=== PATIENT | male | born 1985 | race Caucasian/White ===

== ENCOUNTER 2023-10-22 18:46 | Emergency (ER) | payer SELFPAY ==
[2023-10-22] VITALS (34 sets, daily range): BP systolic 120–201; BP diastolic 68–112; PULSE 62–112; RESP 14–38; TEMP 36.9–37; O2SAT 96–100
--- NOTE | 2023-10-22 18:45 | RT.EKG_ITS ---
APPROVED REPORT Exam: Resting ECG Reason for Exam: unresponsive Patient Location: E HR:107 bpm ECG Measurements Heart Rate 107 AXIS OH 173 P 28 QRSd 106 QRS 1 QT 336 T 36 QTc 449 Conclusion Sinus tachycardia...rate> 99 Inferior infarct, old...Q >35mS, II III aVF
--- NOTE | 2023-10-22 19:03 | DI.CT_ITS ---
Exam(s) CT BRAIN NECK CTA EXAM: CT BRAIN NECK CTA CLINICAL HISTORY: TIA workup. TECHNIQUE: Imaging Protocol: Axial CT angiography was performed with multi-slice acquisition and mu lti-planar and MIP reconstructions. CONTRAST MATERIAL: Intravenous: Omnipaque 350 Contrast volume:85 ml COMPARISON: No exams were available for comparison FINDINGS: CT Head W/O and W contrast: Ventricles and Extra axial spaces: Normal in size and morphology for the patient's age. Hemorrhage: None. Cerebral parenchyma: No evidence of acute infarct or mass. Midline shift: None. Brainstem/Cerebellum: No acute findings.. Calvarium: Normal. Visualized Paranasal sinuses/Mastoids: Small mucous retention cyst left maxillary sinus. Soft Tissues: Unremarkable. Enhancement: Normal. CTA Brain W: Internal Carotid Arteries: Petrous: Normal. Cavernous: Normal. Cerebral: Normal. Middle Cerebral Arteries: Right: No aneurysm, occlusion or significant stenosis. Left: No aneurysm, occlusion or significant stenosis. Anterior Cerebral Arteries: Right: No aneurysm, occlusion or significant stenosis. Left: No aneurysm, occlusion or significant stenosis. Posterior cerebral Arteries: Right: origin. No aneurysm, occlusion or significant stenosis. Left: No aneurysm, occlusion or significant stenosis. Vertebral Arteries: Right: Dominant. No aneurysm, occlusion or significant stenosis. Left: No aneurysm, occlusion or significant stenosis. Terminates as PICA. Basilar Artery: No aneurysm, occlusion or significant stenosis. CTA Neck W: Common Carotid: Right: No dissection, occlusion or significant stenosis. Left: No dissection, occlusion or significant stenosis. External Carotid: Right: No dissection, occlusion or significant stenosis. Left: No dissection, occlusion or significant stenosis. Internal Carotid: Right: No dissection, occlusion or significant stenosis. Left: No dissection, occlusion or significant stenosis. Vertebral Artery: Right: No dissection, occlusion or significant stenosis. Left: No dissection, occlusion or significant stenosis. Lung Apices: No acute findings. Bones: No acute abnormality. Somewhat limited evaluation due to artifact. Soft Tissues: Normal. IMPRESSION: 1. CTA brain: Normal CTA examination of the [place]. 2. Head CT: Unremarkable CT Head. 3. CTA neck: Normal CTA examination of the neck. RADIATION DOSE DELIVERED: Total DLP DATA REPOSITORY: All CT scans at this facility are submitted to the National Radiology Data Registry (NRDR) Dose Index Registry (DIR) with the [employer] (ACR). RADIATION OPTIMIZATION: All CT scans at this facility use at least one of these dose optimization te chniques: automated exposure control; mA and/or kV adjustment per patient size (includes targeted exa ms where dose is matched to clinical indication); or iterative reconstruction.
[2023-10-22] MEDS: Famotidine 20 MG/2 ML VIAL IVP (19:04)
[2023-10-22 19:07] LABS: Abs Immature Grans 0.05 10^3/uL (0.0-0.06); Absolute Basophil Count 0.08 10^3/uL (0.0-0.2); Absolute Eosinophil Count 0.39 10^3/uL (0.0-0.7); Absolute Lymphocyte Count 3.57 10^3/uL (1.2-3.4); Absolute Monocyte Count 1.04 10^3/uL (0.1-0.8); Basophils % 0.6 %; Eosinophils % 2.8 %; HCT 43.6 % (40.0-50.0); Immature Grans % 0.4 %; Lymphocytes % 25.4 %; MCH 26.5 pg (27.0-33.0); MCHC 32.1 % (32.0-36.0); MCV 83 fL (80-95); MPV 9.3 fL (8.0-11.0); Monocytes % 7.4 %; Neutrophils % 63.4 %; Platelet Count 343 10^3/uL (130-400); RBC 5.28 10^6/uL (4.36-5.78); RDW 13.6 % (11.8-14.1); RDW-SD 40.5 fL; WBC 14.05 10^3/uL (4.4-10.8)
[2023-10-22] MEDS: Aspirin 81 MG CHEW 324 MG CH (19:07)
[2023-10-22 19:12] LABS: Absolute Neutrophil Count 8.91 10^3/uL (1.2-6.7)
--- NOTE | 2023-10-22 19:14 | ED.GENADUL_ITS ---
Discharge Plan Disposition Patient Disposition: Home Discharge Details Clinical Impression: Chest pain, Syncope Primary Care Provider: Mora,Local ED Provider: Mariajose Armendariz Home Meds and New Rx's Prescriptions: No Action No Known Home Meds Discharge Instructions Instructions: Syncope (fainting) Additional Instructions: I encourage you to reach out to [facility] primary care provider offices to schedule a PCP visit ELIANA for reevaluation. Your workup today was reassuring. Your episode of unresponsiveness was likely due to syncope/passing out, however I recommend outpatient workup with primary care to rule out other causes such as cardiac arrhythmia. Your chest pain is likely due to gastritis/ acid reflux. I recommend that you use over the counter mylanta or pepcid (famotidine) as needed. Try to reduce your consumption of Mountain Dew, as this is high in caffeine and may lead to cardiac arrhythmias. Be sure to drink plenty of water throughout the day. Return to emergency care if you develop new episodes of passing out/unresponsiveness, chest pain, shortness of breath, or if you are very worried and need to be rechecked again immediately. HPI General Date/Time Provider Initiated Documentation: 10/22/23 18:47 . HPI Narrative: Pedro is a 38 male presents to the emergency department today for evaluation of sudden onset of generalized weakness, left-sided chest pain radiating to his left upper quadrant which is described as an elephant sitting on his chest, shortness of breath. He had a loss of consciousness/unresponsive episode accompanied by drooping to the L side of his mouth. This occurred approximately 20 to 30 minutes prior to arrival to the emergency department. Emergency department staff reports he was unresponsive intially, but did awaken with sternal rub. No reported limb jerking, tongue biting, loss of bowel/bladder control. He denies fever/chills, cough, change in PO intake (though does not drink water during the day, just Mountain Dew), nausea/vomiting, diaphoresis, change in bowel/bladder function. He was working outside until 3 pm today; only urinated once today. +family history of early PA (father); denies tobacco use or regular ETOH use. No known HTN, DM, or other chronic medical conditions (though admits he has not seen a PCP in a long time). Recent history of testicular torsion with testicular mass; currently being worked up. Upon arrival to room 1, Pedro appeared uncomfortable and anxious appearing, initially slow to answer questions. No obvious facial droop or slurred speech, moving all extremities equally. Normal heart sounds, tachycardia noted with HR in 110s. +tenderness with palpation of LUQ. Abdomen soft, nondistended, normoactive BS. Easy work of breathing, lung sounds clear bilaterally. 5/5 muscle strength to upper and lower extremities, no pronation, A+Ox3, acute care occupational therapist II-XII intact as tested. No JVD or pedal edema. Normal finger to finger, finger to nose, Romberg, Meir, heel-hrenandez, gait, and tandem walk. D/dx includes but is not limited to: ACS, syncope, TIA, cardiac arrhythmia, anxiety, esophageal spasm/GERD, pancreatitis, cholecystitis/choledocholithiasis, dehydration, electrolyte imbalance. NIHSS 0. HEART score 2, indicating low risk of MACE. I independently interpreted the following tests:EKG reassuring, sinus tach with rate 107, no changes c/w acute ischemia. CBC notable for leukocytosis, WBC 14.05; CMP reassuring, only mild hypokalemia noted (3.3), lipase negative, initial troponin negative. CTA head and neck reassuring, no occlusion or large vessel stenosis noted within the intracranial arteries or acute intracranial abnormality noted. CT abdomen/pelvis unremarkable, no acute findings. Upon arrival to the ED, Pedro received 3 nitro with full resolution of chest pain (started 10/10, now 0/10), as well as 324 mg ASA, though LUQ pain does persist. IV fluids given. Discussed case with ED attending Dr De La Garza. Workup today overall reassuring. Unresponsive episode unlikely TIA, as isolated lip drooping was noted with no other neuro deficits. Likely syncope, though transient cardiac arrhythmia cannot be ruled out. Cardiac workup reassuring, persistent left upper quadrant pain most likely gastric in origin, muscle spasm may also be possible. Patient does not live in [place]. Recommend close PCP follow-up in his local area. He is agreeable with plan of care. Educated on red flags indicating need for return to emergency care Related Data Home Medications ?Medication ?Instructions ?Recorded ?Confirmed Unknown [No Known Home Meds] 10/22/23 10/22/23 Allergies Allergy/AdvReac Type Severity Reaction Status Date / Time No Known Allergies Allergy Unverified 10/22/23 19:18 General Stated Complaint: Chest Pain CATARINO: 2 Review of Systems Narrative: see HPI Exam Const General: cooperative and anxious Nutritional Appearance: overweight Orientation: alert and oriented x3 Limitations: altered mental status (upon arrival to ED, resolved by time to room) HENMT Head: normal to inspection Ears: hearing grossly normal bilaterally General nose exam: external nose normal Face and sinus: face symmetric and dry mucous membranes (slightly tacky) Neck Neck: no JVD Resp Effort & Inspection: normal respiratory effort and able to speak in complete sentences Auscultation: clear to auscultation bilaterally Cardio Jugular venous pressure: no JVD Rate: tachycardic Rhythm: regular rhythm Pulses: normal peripheral pulses GI Inspection: normal to inspection and non-distended Palpation: soft, no pulsatile masses and tender in the LUQ Skin General skin exam: no rashes or lesions noted Neuro General: patient alert, patient oriented x3, tone normal, moves all extremities, no focal motor deficits and CN's II-XI intact bilaterally Cranial Nerves: no nystagmus, tongue midline, hearing normal and able to elevate shoulders bilaterally Cognition: normal cognition Speech: speech normal Motor: muscle tone normal throughout, strength 5/5 throughout and no pronator drift Course Vital Signs Vital signs: Vital Signs Temperature 36.9 C 10/22/23 18:54 Pulse 106 H 10/22/23 18:54 Respiratory Rate 14 10/22/23 18:54 Blood Pressure 201/112 H 10/22/23 18:54 Pulse Oximetry 100 10/22/23 18:54 Temperature 36.9 C 10/22/23 18:54 Temperature Source Oral 10/22/23 18:54 Pulse 106 H 10/22/23 18:54 Respiratory Rate 14 10/22/23 18:54 Blood Pressure 201/112 H 10/22/23 18:54 Blood Pressure Position Supine 10/22/23 18:54 Pulse Oximetry 100 10/22/23 18:54 Oxygen Delivery Method Room Air 10/22/23 18:54 Oxygen Flow Rate 0 10/22/23 18:54 Pain Level 10 10/22/23 18:54 Comment Pain in left chest/side. Constant on chest and comes and goes on left side of abdomen and chest. 10/22/23 18:54 Lab/Test Results Lab/Test Results: Laboratory Tests Range/Units 10/22/23 18:57 WBC (4.4-10.8) 10^3/uL 14.05 H RBC (4.36-5.78) 10^6/uL 5.28 Hgb (13.5-17.5) g/dL 14.0 Hct (40.0-50.0) % 43.6 MCV (80-95) fL 83 MCH (27.0-33.0) pg 26.5 L MCHC (32.0-36.0) % 32.1 RDW (11.8-14.1) % 13.6 Plt Count (130-400) 10^3/uL 343 MPV (8.0-11.0) fL 9.3 Immature Gran % % 0.4 Neutrophils % % 63.4 Lymphocytes % % 25.4 Monocytes % % 7.4 Eosinophils % % 2.8 Basophils % % 0.6 Nucleated RBC % (0.0-0.3) % 0.0 Absolute Neutrophils (1.2-6.7) 10^3/uL 8.91 H Absolute Lymphocytes (1.2-3.4) 10^3/uL 3.57 H Absolute Monocytes (0.1-0.8) 10^3/uL 1.04 H Absolute Eosinophils (0.0-0.7) 10^3/uL 0.39 Absolute Basophils (0.0-0.2) 10^3/uL 0.08 Medical Decision Making Quality:SDOH Health Related Social Needs: No Data to Display PFSH All Active Problems (Updated 10/22/23 @ 22:41 by Mariajose Juarez) Syncope (Chronic) Chest pain (Acute) Social History Smoking/Tobacco Use Status: Never Smoking risk assessment performed?: Yes Alcohol Intake: current Alcohol Intake frequency: holidays/special occasions only Alcohol type: beer Substance use type: does not use Housing: house Do you feel safe at home: Yes Do you feel safe in your relationship?: Yes
--- NOTE | 2023-10-22 19:15 | DI.CT_ITS ---
Exam(s) CT CHEST/ABD/PEL W EXAM: CT CHEST/ABD/PEL W CLINICAL HISTORY: L sided chest pain/LUQ pain. TECHNIQUE: Imaging Protocol: Axial computed tomography images with coronal and sagittal reformatted images were created and reviewed CONTRAST MATERIAL: Intravenous: Omnipaque 350 Contrast volume:100 ml Oral: yes / no COMPARISON: CT CT BRAIN NECK CTA from 10/22/2023 FINDINGS: CHEST: Tracheobronchial tree: Patent. Pulmonary parenchyma: No consolidation or dominant measurable mass. Pleura: No effusion or pneumothorax. Mediastinum: Within normal limits. Aorta: Thoracic portion non-dilated. Pulmonary arteries: No visible emboli. Heart: No pericardial effusion. Bones: Degenerative changes in the lower thoracic spine. No lytic or blastic lesions.Chronic appeari ng mild compression of the T7 through T9 vertebral bodies. Soft tissues: Unremarkable. ABDOMEN and PELVIS: Liver: Hepatic steatosis. No measurable mass. Gallbladder and biliary tract: No evidence of stones or wall thickening. No biliary dilatation. Pancreas: Normal density, no abnormal calcifications or inflammatory process. Spleen: Normal. Kidneys: Normal size, contour and axis. No radiodense stones. No obstructive uropathy. No suspicious masses seen. Adrenal glands: No masses seen. Aorta: Abdominal portion non-dilated. Lymph nodes: Within normal limits. Soft tissues: Tiny fat containing umbilical hernia. Bladder: Unremarkable. Bowel: No obstruction or bowel wall thickening. Appendix normal. Normal quantity of stool. Peritoneal cavity: No ascites. No focal collection. No mesenteric inflammatory response. No free ai r. Bones: Unremarkable for age. Reproductive organs: Within normal limits. IMPRESSION: No acute abnormality in the chest, abdomen or pelvis. RADIATION DOSE DELIVERED: Total DLP DATA REPOSITORY: All CT scans at this facility are submitted to the National Radiology Data Registry (NRDR) Dose Index Registry (DIR) with the [employer] (ACR). RADIATION OPTIMIZATION: All CT scans at this facility use at least one of these dose optimization te chniques: automated exposure control; mA and/or kV adjustment per patient size (includes targeted exa ms where dose is matched to clinical indication); or iterative reconstruction.
[2023-10-22 19:24] LABS: ALT 35 U/L (16-63); AST 21 U/L (15-37); Albumin 3.7 g/dL (3.4-5.0); Alkaline Phosphatase 79 U/L (46-116); Anion Gap 9.2 mmol/L (3-11); BUN 11 mg/dL (7-18); Bilirubin, Total 0.64 mg/dL (0.2-1.0); CO2 28.8 mmol/L (21.0-32.0); CREATININE 1.2 mg/dL (0.70-1.30); Calcium 9.5 mg/dL (8.5-10.1); Chloride 101 mmol/L (98-107); Estimated GFR 79.88 (mL/min/1.73m2); Glucose 98 mg/dL (74-106); Lipase 29 U/L (16-77); Potassium 3.3 mmol/L (3.5-5.1); Sodium 139 mmol/L (136-145); Total Protein 7.9 g/dL (6.4-8.2); Troponin I < 50 ng/L (< or =60)
[2023-10-22 19:51] LABS: Bilirubin Negative (Negative); Blood Negative (Negative); Clarity Clear (Clear); Glucose Negative (Negative); Ketones Negative (Negative); Leukocyte Esterase Negative (Negative); Nitrite Negative (Negative); Specific Gravity >= 1.030 (1.005-1.025); Urobilinogen 0.2 mg/dL (Up to 0.2); pH 5.5 (5-8)
[2023-10-22] MEDS: Omnipaque 350 MG/ML 100 ML BTL IJ ×2 (19:54→19:59)
[2023-10-22] MEDS: Normal Saline - Diluent 50 ML VIAL IJ ×2 (20:00→20:01)
--- NOTE | 2023-10-22 20:33 | NUR.NOTE ---
Pt originally had to be extricated from the backseat of his truck after experiencing CP 10/10 with neurological complaint of left sided numbness/facial droop. Hx of syncope and unspecified cardiac hx. Has family hx of DE with father dying in early 50s. Pt takes no meds, does not have a PCP, just moved to [place] in July from [place]. Pt intial CP/pressure described as 10/10 like a 500 pound man standing on my chest. Pt given nitro 0.3 mg Sl X3. 7/10 pain after first nitro, 4/10 after 2nd dose and 0/10 pain in chest after 3rd dose. Pt now resting comfortably, VSS. Initial Sinus tachycardia, but now NSR with no ectopy. Pt only complaint in LUQ pain on palpation. Famotidine given and awaiting CT result. Pt BGL 123. No hx of DM. Updated provider on pt improvements. Jorgito Reis, BSN, RN, NRP Nursing Note:
--- NOTE | 2023-10-22 21:13 | DI.VRAD_ITS ---
PROCEDURE INFORMATION: Exam: CTA Head Without And With Contrast, Arteriography Exam date and time: 10/22/2023 8:01 PM Age: 38 years old Clinical indication: Stroke-like symptoms; Other: TIA workup TECHNIQUE: Imaging protocol: Computed tomographic angiography of the head without and with contrast. Exam focused on the arteries. 3D rendering (Not supervised by radiologist): MIP and/or 3D reconstructed images were created by the technologist. Contrast material: OMNI 350; Contrast volume: 85 ml; Contrast route: INTRAVENOUS (IV); Other technique: STROKE PROTOCOL was implemented. COMPARISON: No relevant prior studies available. FINDINGS: ANTERIOR CIRCULATION: Right internal carotid artery: Intracranial segment is patent with no significant stenosis or occlusion. No aneurysm. Right middle cerebral artery: No occlusion or significant stenosis. No aneurysm. Right anterior cerebral artery: No occlusion or significant stenosis. No aneurysm. Left internal carotid artery: Intracranial segment is patent with no significant stenosis. No aneurysm. Left middle cerebral artery: No occlusion or significant stenosis. No aneurysm. Left anterior cerebral artery: No occlusion or significant stenosis. No aneurysm. POSTERIOR CIRCULATION: Right vertebral artery: Dominant. No occlusion or significant stenosis. No aneurysm. Left vertebral artery: Non-dominant. Congenitally terminates as the PICA. Basilar artery: No occlusion or significant stenosis. No aneurysm. Right posterior cerebral artery: circulation. No occlusion or significant stenosis. No aneurysm. Left posterior cerebral artery: No occlusion or significant stenosis. No aneurysm. HEAD: Brain: No significant volume loss within the brain parenchyma. No intracranial hemorrhage. No extra-axial fluid collection. No midline shift. No loss of allison-white differentiation to suggest an acute cortical infarct. Cerebral ventricles: No hydrocephalus. Bones: No evidence for acute skull fracture. Orbital cavities: The intraorbital contents are normal appearance. Paranasal sinuses: A 7 mm retention cyst or polyp is seen superiorly within the left maxillary sinus. Minimal mucosal thickening within the ethmoid sinuses. The imaged paranasal sinuses are otherwise well aerated. Mastoid air cells: The mastoid air cells are well aerated. Soft tissues: Unremarkable. IMPRESSION: 1. No large vessel stenosis or occlusion within the intracranial arteries. 2. No acute intracranial abnormality. ASSESSMENT: ASPECTS ([place] Stroke Program Early CT Score) is 10. PROCEDURE INFORMATION: Exam: CTA Neck Without And With Contrast Exam date and time: 10/22/2023 8:01 PM Age: 38 years old Clinical indication: Stroke-like symptoms; Other: TIA workup TECHNIQUE: Imaging protocol: Computed tomographic angiography of the neck without and with contrast. Exam focused on the cervical segments of the vasculature. 3D rendering (Not supervised by radiologist): MIP and/or 3D reconstructed images were created by the technologist. Contrast material: OMNI 350; Contrast volume: 85 ml; Contrast route: INTRAVENOUS (IV); COMPARISON: No relevant prior studies available. FINDINGS: Right common carotid artery: No stenosis. No dissection or occlusion. Right internal carotid artery: No stenosis of the extracranial segment. No dissection or occlusion. Right external carotid artery: No occlusion or stenosis of the origin. Left common carotid artery: No stenosis. No dissection or occlusion. Left internal carotid artery: No stenosis of the extracranial segment. No dissection or occlusion. Left external carotid artery: No occlusion or stenosis of the origin. Right vertebral artery: Dominant. No stenosis. No dissection or occlusion. Left vertebral artery: Non-dominant. The vertebral artery originates from the aortic arch. Soft tissues: Normal. No significant soft tissue swelling. Bones/joints: No acute fracture. IMPRESSION: 1. No stenosis or occlusion within the extracranial/cervical arteries. 2. Please see the above CTA head report above for the intracranial findings. REFERENCES: NASCET CRITERIA. The degree of stenosis in the cervical segment of the internal carotid artery is based on NASCET criteria. Normal is no stenosis. Mild is less than 50% stenosis. Moderate is 50-69% stenosis. Severe is 70% to 99% stenosis. Total occlusion is no detectable patent lumen. Dictated and Authenticated by: Yuliana Gibbons MD. Ordering:MERCY Billy MD
--- NOTE | 2023-10-22 21:18 | DI.VRAD_ITS ---
PROCEDURE INFORMATION: Exam: CT Chest With Contrast; Diagnostic Exam date and time: 10/22/2023 20:13 Age: 38 years old Clinical indication: Abdominal pain; Other: L sided chest pain/luq pain; Left-sided TECHNIQUE: Imaging protocol: Diagnostic computed tomography of the chest with contrast. Contrast material: OMNI 350; Contrast volume: 100 ml; Contrast route: INTRAVENOUS (IV); COMPARISON: CT BRAIN NECK CTA 10/22/2023 20:01 FINDINGS: Lungs: No airspace consolidation. Pleural spaces: No pneumothorax. No pleural effusion. Heart: No cardiomegaly. No pericardial effusion. Lymph nodes: No enlarged lymph nodes. Vasculature: No aortic aneurysm. Bones/joints: No acute fracture or subluxation. Soft tissues: Prominent subcutaneous fat. No focal soft tissue lesion or collection. IMPRESSION: No acute findings. PROCEDURE INFORMATION: Exam: CT Abdomen And Pelvis With Contrast Exam date and time: 10/22/2023 20:13 Age: 38 years old Clinical indication: Abdominal pain; Other: L sided chest pain/luq pain; Left-sided TECHNIQUE: Imaging protocol: Computed tomography of the abdomen and pelvis with contrast. Contrast material: OMNI 350; Contrast volume: 100 ml; Contrast route: INTRAVENOUS (IV); COMPARISON: No relevant prior studies available. FINDINGS: Liver: Fatty liver with no mass lesions. Gallbladder and biliary ducts: The gallbladder is contracted. No significant biliary dilation or radiopaque stones in the biliary tree. Pancreas: No ductal dilation. No mass . Spleen: No splenomegaly or suspicious lesions. Adrenal glands: No suspicious mass. Kidneys and ureters: No hydronephrosis. No masses. Stomach and bowel: No obstruction. No mucosal thickening. Appendix: No evidence of appendicitis. Intraperitoneal space: No free air. No significant fluid collection. Vasculature: No abdominal aortic aneurysm. Lymph nodes: No significantly enlarged lymph nodes. Urinary bladder: Contrast in the urinary bladder without extravasation or significant wall thickening. Reproductive: Unremarkable as visualized. Bones/joints: No acute fracture or subluxation. Soft tissues: Mild dependent subcutaneous edema. Tiny fat-containing umbilical hernia. Prominent subcutaneous fat. IMPRESSION: 1. No acute findings. 2. Incidental findings as described. Dictated and Authenticated by: Carmen Jennings MD. Ordering:MERCY Billy MD
--- OUTSIDE RECORDS SUMMARY | 2023-10-22 21:25 | XMS_ITS | Encounter Summary ---
Author Organization [facility] Address [address] [place] [address] Care Team Providers Care Report Specialist Name Role Phone None, Provider Primary Care Provider Unavailabl e Reason for Visit * Reason Comments Groin Pain Pt arrives with R si ded groin/testicular pain which woke him from sleep. He describes pain as intense sharp pain that starts in his R testicle and travels up and down. Encounter Details Date Type Department Care Team (Late st Contact Info) Description 09/03/2023 3:22 EDT - 09/03/2023 4:04 EDT Emergency [facility] Emergency Department [address] [place] [address] Yuliana Turner, DO [address] [place] [address] Right testicular pain (Primary Dx) Discharge Disposition: Another Health Care Institution Not Defined Social History Tobacco Use Types Packs/Day Years Used Date Smoking Tobacco: Never Smokeless Tobacco: Never Tobacco Cessation:Counseling Given: Not Answered Alcohol Use Standard Drinks/Week Comments Not Currently 0 (1 standard drink = 0.6 oz pur e alcohol) rarely Sex and Gender Information Value Date Recorded Sex Assigned at Not on file Gender Identity Male 09/03/2023 4:52 EDT Sexual Orientation Not on file documented as of this encounter Last Filed Vital Signs Vital Sign Reading Time Taken Comments Blood Pressure 162/101 09/03/2023 0353 EDT Pulse - - Temperature 36.6 ??C (97.8 ??F) 09/03/2023 0339 EDT Respiratory Rate 26 09/03/2023 0339 EDT Oxygen Saturation 98% 09/03/2023 0353 EDT Inhaled Oxygen Concentration - - Weight - - Height - - Body Mass Index - - documented in this encounter Functional Status Functional Status Response Date of Assess ment Are you deaf or do you have serious difficulty h earing? No 09/03/2023 documented as of this encounter Discharge Disposition Disposition Code Departure Means Destination Comment s Another Health Care Institution Not Defined documented in this encounter ED Notes * KittyYuliana rice, DO - 09/03/2023 0319 EDT Emergency Department Visit Assessment and ED Course Pedro Chou is a 38 y.o. male who presents to the ED for right groin/testicular pain which woke him from sleep around 0230. Given his testicular pain with acute onset there is concern for testicular torsion. As ultrasound to evaluate his testicles not available at [facility] overnight his care was discussed with Dr. Pang ([facility] emergency physician) who accepts patient for transfer. Final diagnoses: Right testicular pain Disposition: Transfered to Another Facility Chief complaint: Right groin pain HPI Pedro Chou is a 38 y.o. male who presents to the ED for right groin/testicular pain which woke him from sleep around 0230. Patient reports having a bowel movement just after he woke up which did not improve his pain at all. He did not take any pain medication prior to arrival. He describes the pain as a sharp pain that starts in his right testicle and travels up into his abdomen. Patient reports mild nausea but no vomiting. No fevers. No left-sided testicular abdominal pain. No trauma or falls. History was provided by: Patient Patient's pertinent PMH, FH, SH were reviewed and edited as necessary. Physical Exam BP (!) 162/101 Temp 36.6 ??C (97.8 ??F) (Axillary) Resp 26 SpO2 98% A medical screening exam was performed. Physical Exam Vitals and nursing note reviewed. Exam conducted with a director learning present (Celestina Thorpe RN). Constitutional: General: He is not in acute distress. Appearance: He is well-developed and well-nourished. HENT: Right Ear: External ear normal. Left Ear: External ear normal. Nose: No nasal discharge. Mouth/Throat: Mouth: Mucous membranes are moist. Eyes: Conjunctiva/sclera: Conjunctivae normal. Cardiovascular: Rate and Rhythm: Normal rate and regular rhythm. Pulses: Intact distal pulses. Pulmonary: Effort: Pulmonary effort is normal. No respiratory distress. Comments: Normal work of breathing, able to speak in full sentences, no audible wheezing, no cough Abdominal: General: There is no distension. Palpations: Abdomen is soft. Tenderness: There is abdominal tenderness in the right lower quadrant. There is no guarding. Comments: Right flank tender to palpation Genitourinary: Comments: Tenderness to palpation of right testicle. No cremasteric reflex on right side. No tenderness palpation of left testicle. Musculoskeletal: General: Normal range of motion. Cervical back: Normal range of motion and neck supple. Skin: General: Skin is warm and dry. Capillary Refill: Capillary refill takes less than 2 seconds. Neurological: General: No focal deficit present. Mental Status: He is alert and oriented to person, place, and time. Psychiatric: Mood and Affect: Mood and affect normal. Procedures Procedures documented in this encounter Plan of Treatment Upcoming Encounters Date Type Department Care Team (Late st Contact Info) Description 11/10/2023 9:00 EDT Appointment [facility] CT Scan [address] [place] [address] documented as of this encounter Procedures Procedure Name Priority Date/Time Associated Diagnosis Comments COMPREHENSIVE METABOLIC PANEL (CMP) STAT 09/03/2023 3:42 EDT COMPLETE BLOOD COUNT AND DIFFERENTIAL STAT 09/03/2023 3:41 EDT documented in this encounter Results * (ABNORMAL) COMPREHENSIVE METABOLIC PANEL (CMP) (09/03/2023 3:42 EDT) Sodium 146(H) 136 - 145 mmol/L 09/03/2023 4:03 EDT [facility] Potassium 4.0 3.5 - 5.0 mmol/L 09/03/2023 4:03 EDT [facility] Chloride 108 96 - 110 mmol/L 09/03/2023 4:03 EDT [facility] CO2 Total 27 22 - 32 mmol/L 09/03/2023 4:03 [facility] Glucose 115(H) 70 - 99 mg/dl 09/03/2023 4:03 [facility] BUN 19 10 - 26 mg/dL 09/03/2023 4:03 [facility] Creatinine 1.30(H) 0.66 - 1.25 mg/dL 09/03/2023 4:03 [facility] eGFR 73 >60 mL/min/1.7 3m2 09/03/2023 4:03 [facility] Total Protein 7.7 6.3 - 8.2 g/dL 09/03/2023 4:03 [facility] Albumin 4.6 3.4 - 4.9 g/dL 09/03/2023 4:03 [facility] Alkaline Phosphatase 73 38 - 126 U/L 09/03/2023 4:03 [facility] AST 33 15 - 46 U/L 09/03/2023 4:03 [facility] ALT 39 <50 U/L 09/03/2023 4:03 [facility] Bilirubin, Total 0.8 <1.4 mg/dL 09/03/19 4:03 [facility] Calcium 9.8 8.5 - 10.5 mg/dL 09/03/2023 4:03 [facility] Albumin/Globulin Ratio 1.5 1.0 - 2.5 09/03/2023 4:03 [facility] Anion Gap 11 5 - 14 mmol/L 09/03/2023 4:03 [facility] Blood VENOUS BLOOD / Unknown Venipuncture / Unknown 09/03/2023 3:42 EDT 09/03/2023 3:44 EDT Yuliana Turner DO CHEMISTRY & BLOO D GAS ORDERABLES [facility] [address] [place] [address] * (ABNORMAL) COMPLETE BLOOD COUNT AND DIFFERENTIAL (09/03/2023 3:41 EDT) WBC 10.41(H) 4.00 - 10.40 K/cmm 09/03/2023 3:46 [facility] RBC 5.48 4.36 - 5.78 M/cmm 09/03/2023 3:46 [facility] Hemoglobin 14.4 13.8 - 17.3 g/dL 09/03/2023 3:46 [facility] HCT 46.1 39.5 - 50.2 % 09/03/2023 3:46 [facility] MCV 84 81 - 95 fL 09/03/2023 3:46 [facility] MCH 26.3(L) 27.6 - 33.0 pg 09/03/2023 3:46 [facility] MCHC 31.2(L) 32.8 - 36.4 g/dL 09/03/2023 3:46 [facility] RDW-CV 13.6 <14.2 % 09/03/2023 3:46 [facility] RDW-SD 41.6 <46.0 fl 09/03/2023 3:46 [facility] PLT 361 141 - 377 K/cmm 09/03/2023 3:46 [facility] MPV 9.6 9.5 - 12.7 fL 09/03/2023 3:46 [facility] % Neutrophils 51.7 % 09/03/2023 3:46 [facility] % Lymphocytes 33.2 % 09/03/2023 3:46 [facility] % Monocytes 9.5 % 09/03/2023 3:46 [facility] % Eosinophils 4.4 % 09/03/2023 3:46 [facility] % Basophils 0.8 % 09/03/2023 3:46 [facility] % Immature Grans 0.4 % 09/03/19 3:46 [facility] Absolute Neutrophils 5.38 2.20 - 8.85 K/cmm 09/03/2023 3:46 [facility] Absolute Lymphocytes 3.46(H) 1.09 - 3.30 K/cmm 09/03/2023 3:46 [facility] Absolute Monocytes 0.99(H) 0.10 - 0.80 K/cmm 09/03/2023 3:46 T [facility] Absolute Eosinophils 0.46 0.03 - 0.61 K/cmm 09/03/2023 3:46 [facility] ABS Basophils 0.08 0.01 - 0.11 K/cmm 09/03/2023 3:46 [facility] Absolute Immature Grans 0.04 0.00 - 0.06 K/cmm 09/03/2023 3:46 [facility] Type of Differential: Auto 09/03/2023 3:46 [facility] Blood VENOUS BLOOD / Unknown Venipuncture / Unknown 09/03/2023 3:41 EDT 09/03/2023 3:44 EDT Yuliana Turner DO PACKAGES & DNA P ROBE ORDERABLES Performing Organization Address [facility]/State/[facility] Co de Phone Number [facility] [address] [place] [address] documented in this encounter Visit Diagnoses Diagnosis Right testicular pain- Primary Unspecified disorder of male genital organs documented in this encounter Administered Medications Inactive Administered Medications - up to 3 most recent administrations Medication Order MAR Action Action Date Dose Rate Site HYDROmorphone (DILAUDID) injection 1 mg 1 mg, intravenous, NOW X1, 1 dose, On Wed09/03/23 at 0400, Routine Given 09/03/2023 3:49 EDT 1 mg ketOROLAC (TORADOL) injection 15 mg 15 mg, intravenous, NOW X1, 1 dose, On Wed09/03/23 at 0400, Routine Given 09/03/2023 3:35 EDT 15 mg ondansetron (PF) (ZOFRAN) injection 4 mg 4 mg, intravenous, NOW X1, 1 dose, On Wed09/03/23 at 0415, STAT Given 09/03/2023 3:55 EDT 4 mg documented in this encounter Active and Recently Administered Medications Times are shown in EDT. Scheduled Medication Order 09/01/2023 09/02/2023 09/03/2023 HYDROmorphone (DILAUDID) injection 1 mg (COMPLETED) 1 mg, intravenous, NOW X1, 1 dose, On Wed09/03/23 at 0400, Routine 0349 (Given - Provid er: Celestina Thorpe RN) ketOROLAC (TORADOL) injection 15 mg (COMPLETED) 15 mg, intravenous, NOW X1, 1 dose, On Wed09/03/23 at 0400, Routine 0335 (Given - Provid er: Celestina Thorpe RN) ondansetron (PF) (ZOFRAN) injection 4 mg (COMPLETED) 4 mg, intravenous, NOW X1, 1 dose, On Wed09/03/23 at 0415, STAT 0355 (Given - Provid er: Celestina Thorpe RN) documented in this encounter Orders Nursing Count Last Ordered Date First Orde red Date CALL TRANSFER CENTER [facility] 1 09/03/2023 documented in this encounter Care Teams Report Specialist Relationship Specialty Start Date End Date None, Provider PCP - General 09/03/23 documented as of this encounter
--- OUTSIDE RECORDS SUMMARY | 2023-10-22 21:25 | XMS_ITS | Encounter Summary ---
Author Organization [facility] Address [address] [place] [address] Care Team Providers Care [employer] Name Role Phone None, Provider Primary Care Provider Unavailabl e Reason for Referral * Consult (Routine/Next Available) - Authorization Not Required Specialty Diagnoses / Procedures Referred By Sayra arceo Referred To Contact Urology Diagnoses Orchitis Johnny Teran MD MSc [address] [facility], [facility] [address] [place] [address] [facility] [address] [place] [address] Referral ID Status Reason Start Date Expiration Date Visits Requested Visits Authorized [id number] Authorization Not Required Specialty Services Required 4 1 1 Question Answer Reason for Request: orchitis Reason for Visit * Reason Comments Groin Pain EMS transfer, pt awo ke 0230 with intense testicular pain that radiated to groin, up to LRQ and to his back. Arrives in 6/10 pain with stable vital signs. Encounter Details Date Type Department Care Team (Late st Contact Info) Description 09/03/2023 4:38 EDT - 09/03/2023 8:52 EDT Emergency [facility] Emergency Department - [address] [address] Ellen Pang MD [address] [place] [id number] Johnny Teran MD MSc [address] [facility], Level [address] [place] [address] Orchitis (Primary Dx) Discharge Disposition: Home or Self Care Social History Tobacco Use Types Packs/Day Years Used Date Smoking Tobacco: Never Smokeless Tobacco: Never Alcohol Use Standard Drinks/Week Comments Not Currently 0 (1 standard drink = 0.6 oz pur e alcohol) rarely Sex and Gender Information Value Date Recorded Sex Assigned at Not on file Gender Identity Male 09/03/2023 4:52 EDT Sexual Orientation Not on file documented as of this encounter Last Filed Vital Signs Vital Sign Reading Time Taken Comments Blood Pressure 112/70 09/03/2023 0816 EDT Pulse - - Temperature 36.4 ??C (97.6 ??F) 09/03/2023 0450 EDT Respiratory Rate 18 09/03/2023 0816 EDT Oxygen Saturation 98% 09/03/2023 0816 EDT Inhaled Oxygen Concentration - - Weight 108.4 kg (239 lb) 09/03/2023 0450 EDT Height 172.7 cm (5' 8) 09/03/2023 0450 EDT Body Mass Index 36.34 09/03/2023 0450 EDT documented in this encounter Functional Status Functional Status Response Date of Assess ment Are you deaf or do you have serious difficulty h earing? No 09/03/2023 documented as of this encounter Discharge Instructions * Discharge Instructions* Johnny Teran MD MSc - 09/03/2023 8:19 EDT Based on the evaluation conducted in the emergency department, I suspect that you have orchitis which is an inflammation of the testicle often caused from a bacterial infection. I have prescribed youciprofloxacin which is an antibiotic that you should take twice a day for 2 weeks. Please use probiotics or yogurt with live cultures to maintain healthy gut palmira while on the antibiotic. Control discomfort with supportive briefs, acetaminophen and ibuprofen with food. Please follow-up next week with your primary care provider and I have placed a referral on your behalf to the urology clinic to ensure resolution of your symptoms. If you feel worse or develop any new or additional symptoms of co ncern, please return right away. * Attachments The following attachments cannot be sent through Care Everywhere. * Epididymitis and Orchitis (Sami) * Male Anatomy: Anatomy Sketch (Sami) documented in this encounter Medications at Time of Discharge Medication Sig Dispensed Refills Start Date End Date ciprofloxacin HCl (CIPRO) 500 mg tablet Take 1 Tablet by mouth every 12 hours for 14 days. 28 Tablet 09/03/2023 09/17/2023 documented as of this encounter Ordered Prescriptions Prescription Sig Dispensed Refills Start Date End Da te ciprofloxacin HCl (CIPRO) 500 mg tablet Take 1 Tablet by mouth every 12 hours for 14 days. 28 Tablet 09/03/2023 09/17/2023 documented in this encounter Discharge Disposition Disposition Code Departure Means Destination Comment s Home or Self Assisted documented in this encounter ED Notes * Erin Fountain RN - 09/03/2023 0636 EDT Provider in room with the PT ( Urology) * Ellen Pang MD - 09/03/2023 0438 EDT Emergency Department Visit Medical Decision Making 38-year-old male no significant past medical history [place] [facility] [place] out testicular torsion in the setting of approximately 3 hours of acute onset right testicular pain without any other associated GI, , or systemic infectious symptoms. On arrival to the emergency department, patient uncomfortable but nontoxic-appearing with focal tenderness to right testicle, no abdominal pain. History and exam concerning for torsion. Acute onset less likely epididymitis, orchitis. No abdominal pain by history or on exam to suggest appendicitis, diverticulitis, perforated viscus. No upper abdominal pain to suggest hepatobiliary etiology of symptoms. Ordered for screening labs including type and screen, scrotal ultrasound, anticipate urology evaluation pending imaging results Medical Decision Making Problems Addressed: Orchitis: complicated acute illness or injury Amount and/or Complexity of Data Reviewed Labs: ordered. Radiology: ordered. Risk Prescription drug management. Final diagnoses: None Disposition: No disposition on file Chief complaint: R testicular pain HPI Pedro K Aschbrenner is a 38 y.o. male with no significant PMHx transferred [place] [facility] for concern for testicular torsion due to acute onset right testicular pain without any associated GI or infectious symptoms or urinary symptoms that started approximately 3 hours prior to arrival to the emergencydepartment (0230). No trauma. No prior similar episodes. Denies any dysuria, hematuria, discharge or new sexual partners. No other complaints at this time. History was provided by: patient Records reviewed include:n/a Patient's pertinent PMH, FH, SH were reviewed and edited as necessary. Nursing notes reviewed. A medical screening exam was performed. Physical Exam BP (!) 136/100 (BP Patient Position: Semi fowlers) Temp 36.4 ??C (97.6 ??F) (Oral) Resp 14 Ht172.7 cm (68) Wt (!) 108.4 kg (239 lb) SpO2 98% BMI 36.34 kg/m?? Physical Exam General: alert and oriented to person, place, and time. Intermittently having severe pain HEENT: mucous membranes moist CV: regular rate and rhythm, no murmurs appreciated. 2+ radial pulses bilaterally. Pulm: clear to auscultation bilaterally Abd: Normoactive bowel sounds. Non-tender, non-distended. : Tenderness to palpation of right testicle, no overlying scrotal changes. No tenderness to palpation of left testicle. No overlying lesions. No discharge Extremities: warm, dry, well-perfused. 2+ DP and femoral pulses bilaterally. No edema bilaterally. Neuro: pupils equal and reactive, normal speech and gait. Procedures Procedures * Johnny Teran MD MSc - 09/03/2023 0438 EDT I, Kari Alejandro, am scribing for Johnny Teran MD while he/she is personally performing the service. Kari Alejandro 09/03/2023 6:46 Pedro Chou is a 38 y.o. male with no significant past medical history transferred [place] [facility] [place] rule out testicular torsion in the setting of approximately 3 hours of acute onset right testicular pain without any other associated GI, , or systemic infectious symptoms. Care and work-up prior to sign out includes labs and US scrotum. I assumed care of patient from Dr. Pang with ultrasound read and urology recommendation pending. After I assumed care the patient had Relevant Data as of 09/03/23 0820 WedSeptember 03, 2023 0537 Ultrasound on my independent interpretation appears to have diminished flow on the right. Urology paged. [LA] 0541 Discussed case with urology resident who will review ultrasound images [LA] 0642 I received signout on this patient from Dr. Pang for this 38-year-old man presenting with testicular pain. He was transferred for ultrasound out of concern for possible torsion. He feels significantly better at present time. We are currently awaiting ultrasound results. In the event that his symptoms are secondary to epididymitis/orchitis, the patient endorses being in a monogamous relationship and not having any potential gonorrhea chlamydia exposure. He does have a sulfa and penicillin allergy. [MS] Relevant Data User Index [LA] Ellen Pang MD [MS] Johnny Teran MD MSc 0750 US Scrotum impression: 1. No evidence of torsion. 2. Slight increased color Doppler flow in an otherwise normal-appearing right testicle, nonspecific, but can be seen with orchitis. 0818 At this time, the patient was stable for discharge home due to reassuring ultrasound. Will send him home with ciprofloxacin prescription. Return precautions were discussed. Final diagnoses: Orchitis This documentation is recorded by Kari Alejandro acting as Scribe under the direction and presence of Johnny Teran MD. Johnny Teran MD: I personally performed the services recorded by the scribe in my presence. Iconfirm the scribe's documentation has been reviewed by me to accurately and completely record my work, treatment, procedures, and medical decision making. Note has been documented by Kari Alejandro on 09/03/2023 documented in this encounter Plan of Treatment Upcoming Encounters Date Type Department Care Team (Late st Contact Info) Description 11/10/2023 9:00 EDT Appointment [facility] CT Scan [address] [place] [id number] Scheduled Referrals Name Type Priority Associated Diagnoses Order Schedule AMB CONS/FOLLOW UP UROLOGY Outpatient Referral Routine/Next Available Orchitis Expected: 09/10/2023 (Approximate), Expires: 09/02/2024 documented as of this encounter Procedures Procedure Name Priority Date/Time Associated Diagnosis Comments URINE CHEMICAL (DIP) & SEDIMENT (MICRO) WITH REFLEX TO CULTURE STAT 09/03/2023 8:29 EDT CHLAMYDIA/N. GONORRHOEAE AMPLIFIED NUCLEIC ACID Routine 09/03/2023 8:29 EDT US SCROTUM WITH LIMITED DUPLEX STAT 09/03/2023 5:40 EDT PTT STAT 09/03/2023 4:57 EDT PROTIME STAT 09/03/2023 4:57 EDT COMPLETE BLOOD COUNT AND DIFFERENTIAL STAT 09/03/2023 4:57 EDT TYPE AND SCREEN STAT 09/03/2023 4:57 EDT BASIC METABOLIC PANEL (BMP) STAT 09/03/2023 4:57 EDT documented in this encounter Results * (ABNORMAL) UA CHEMICAL & SEDIMENT + REFLEX TO CULTURE (09/03/2023 8:29 EDT) Color UA Yellow Colorless, Yellow 09/03/2023 9:05 [facility] Clarity UA Cloudy(A) Clear 09/03/2023 9:05 [facility] Glucose UA Negative Negative mg/dL 09/03/2023 9:05 [facility] Bilirubin UA Negative Negative 09/03/2023 9:05 [facility] Ketones UA Negative Negative 09/03/2023 9:05 [facility] Specific [place], Urine 1.034(H) 1.001 - 1.030 09/03/2023 9:05 [facility] Blood UA 3+(A) Negative 09/03/2023 9:05 [facility] Urobilinogen UA 1.0 0.2-1.0 mg/dL mg/dL 09/03/2023 9:05 [facility] Nitrite UA Negative Negative 09/03/2023 9:05 [facility] Leukocyte Esterase UA Negative Negative 09/03/2023 9:05 [facility] Protein UA 1+(A) Negative mg/dL 09/03/2023 9:05 [facility] pH, UA 5.5 <8.5 09/03/2023 9:05 [facility] Urine RBC Count, Auto 11 - 50(A) 0 - 2 Cells/HPF 09/03/2023 9:05 [facility] Urine WBC Count, Auto 0 - 3 0 - 3 Cells/HPF 09/03/2023 9:05 [facility] Urine Squamous Count, Auto None Seen None Seen Cells/HPF 09/03/2023 9:05 [facility] Urine Hyaline Cast Count, Auto <=10 <=10 Casts/LPF 09/03/2023 9:05 [facility] Urine Bacteria Count, Auto None Seen None Seen Bacteria/HP F 09/03/2023 9:05 [facility] Urine URINE SPECIMEN OBTAINED BY CLEAN CATCH PROCEDURE / Unknown Urine Collect / Unknown 09/03/2023 8:29 EDT 09/03/2023 8:33 EDT Narrative [facility] - 09/03/2023 9:05 EDT NOTE: Reflex to Urine Culture test is not indicated based on Urine Sediment Analysis results. Urine Sediment Analysis results are unreliable on urines that are unrefrigerated for >2 hrs or refrigerated >8 hrs. Johnny Teran MD MSc URINALYSIS ORDERA BLES [facility] [address] [place] [id number] * CHLAMYDIA/N. GONORRHOEAE AMPLIFIED RNA (09/03/2023 8:29 EDT) Neisseria gonorrhoeae Result Negative Negative 09/03/2023 14:29 EDT [facility] Chlamydia trachomatis Result Negative Negative 09/03/2023 14:29 EDT [facility] Urine URINE / Unknown Urine Collect / Unknown 09/03/2023 8:29 EDT 09/03/2023 8:36 EDT Johnny Teran MD MSc MICROBIOLOGY - BriefCam ORDERABLES [facility] [address] [place] [address] * US SCROTUM WITH LIMITED DUPLEX (09/03/2023 5:40 EDT) Anatomical Region Laterality Modality Body Ultrasound 09/03/2023 8:45 EDT Impressions 09/03/2023 8:45 EDT Findings/Impression: Right testicle: Arterial and venous Doppler waveforms and color flow are present in the right testicle. Left testicle: Arterial and venous Doppler waveforms and color flow are present in the left testicle. GRAYSCALE: Technique: Grayscale ultrasound of the scrotum was performed. Indication for Grayscale: acute onset R testicular pain at 0230 r/o torsion; Findings: Right Testicle: ??The right testis measures 4.1 x 2.4 x 2.7 cm, for an estimated total testis volume of 14 mL. Homogenous echotexture. Slightly increased color Doppler flow as compared to the contralateral left testicle. No concerning focal lesion. Right Epididymis: The right epididymal head measures 0.7 x 0.9 x 1.4 cm. Homogenous echotexture. Left Testicle: The left testis measures 3.7 x 1.9 x 2.2 cm, for an estimated total testis volume of 8 mL. Homogenous echotexture. No concerning focal lesion. Left Epididymis: The left epididymal head measures 0.7 x 1.1 x 1.1 cm. Homogenous echotexture. Spermatic Cords: Straight Scrotal Sac: Trace bilateral hydroceles. No varicocele or scrotal hernia. Scrotal Skin: Unremarkable IMPRESSION: 1. ??No evidence of torsion. 2. ??Slight increased color Doppler flow in an otherwise normal-appearing right testicle, nonspecific, but can be seen with orchitis. I have personally reviewed the images and the above interpretation and agree with the findings. [id number] Narrative 09/03/2023 8:45 EDT US SCROTUM WITH LIMITED DUPLEX ??09/03/2023 4:54 AM SIGNS AND SYMPTOMS/COMMENTS: acute onset R testicular pain at 0230 r/o torsion; COMPARISON: None DUPLEX: Indication For Duplex: Concern for testicular torsion and/or mass Technique: Color and spectral Doppler ultrasound of the scrotum was performed. Resulting Agency Comment [id number] Procedure Note Taqueria Pineda MD - 09/03/2023 US SCROTUM WITH LIMITED DUPLEX 09/03/2023 4:54 AM SIGNS AND SYMPTOMS/COMMENTS: acute onset R testicular pain at 0230 r/otorsion; COMPARISON: None DUPLEX: Indication For Duplex: Concern for testicular torsion and/or mass Technique: Color and spectral Doppler ultrasound of the scrotum wasperformed. IMPRESSION Findings/Impression: Right testicle: Arterial and venous Doppler waveforms and color flow arepresent in the right testicle. Left testicle: Arterial and venous Doppler waveforms and color flow arepresent in the left testicle. GRAYSCALE: Technique: Grayscale ultrasound of the scrotum was performed. Indication for Grayscale: acute onset R testicular pain at 0230 r/otorsion; Findings: Right Testicle: The right testis measures 4.1 x 2.4 x 2.7 cm, for anestimated total testis volume of 14 mL. Homogenous echotexture. Slightlyincreased color Doppler flow as compared to the contralateral lefttesticle. No concerning focal lesion. Right Epididymis: The right epididymal head measures 0.7 x 0.9 x 1.4 cm.Homogenous echotexture. Left Testicle: The left testis measures 3.7 x 1.9 x 2.2 cm, for anestimated total testis volume of 8 mL. Homogenous echotexture. Noconcerning focal lesion. Left Epididymis: The left epididymal head measures 0.7 x 1.1 x 1.1 cm.Homogenous echotexture. Spermatic Cords: Straight Scrotal Sac: Trace bilateral hydroceles. No varicocele or scrotalhernia. Scrotal Skin: Unremarkable IMPRESSION: 1. No evidence of torsion. 2. Slight increased color Doppler flow in an otherwise normal-appearingright testicle, nonspecific, but can be seen with orchitis. I have personally reviewed the images and the above interpretation andagree with the findings. [id number] Ellen Pang MD IMG US ORDERABLES * TYPE AND SCREEN (09/03/2023 4:57 EDT) Pathologist [facility] ABO A 09/03/2023 5:40 EDT [facility] Rh Factor Positive 09/03/2023 5:40 EDT [facility] Antibody Screen Negative 09/03/2023 5:40 EDT [facility] Specimen Expires: 09/06/2023 @ 23:59 09/03/2023 5:40 EDT [facility] Blood VENOUS BLOOD / Unknown Venipuncture / Unknown 09/03/2023 4:57 EDT 09/03/2023 5:02 EDT Ellen Pang MD BLOOD BANK TESTS Performing Organization Address City/[facility]/ZIP Co de Phone Number [facility] [address] [place] [phone] * PTT (09/03/2023 4:57 EDT) Pathologist [facility] PTT 31 26 - 37 secs 09/03/2023 5:29 EDT [facility] Blood VENOUS BLOOD / Unknown Venipuncture / Unknown 09/03/2023 4:57 EDT 09/03/2023 5:04 EDT Ellen Pang MD HEMATOLOGY & PF4 ORD ERABLES Performing Organization Address City/[facility]/ZIP Co de Phone Number [facility] [address] [place] [address] * PROTIME (09/03/2023 4:57 EDT) Pathologist [facility] I.N.R. 1.1 0.9 - 1.1 Ratio 09/03/2023 5:29 [facility] Pro Time 11.8 9.7 - 12.8 secs 09/03/2023 5:29 [facility] Blood VENOUS BLOOD / Unknown Venipuncture / Unknown 09/03/2023 4:57 EDT 09/03/2023 5:04 EDT Narrative [facility] - 09/03/2023 5:29 EDT Moderate Intensity Coumadin INR = 2.0-3.0 Adjustments in anticoagulant therapy dose should be based on the INR and NOT on the Protime. Ellen Pang MD HEMATOLOGY & PF4 ORD ERABLES [facility] [address] [place] [address] * (ABNORMAL) BASIC METABOLIC PANEL (BMP) (09/03/2023 4:57 EDT) Sodium 142 136 - 145 mmol/L 09/03/2023 5:20 [facility] Potassium 4.2 3.5 - 5.0 mmol/L 09/03/2023 5:20 [facility] Chloride 112(H) 96 - 110 mmol/L 09/03/2023 5:20 [facility] CO2 Total 20(L) 22 - 32 mmol/L 09/03/2023 5:20 [facility] Anion Gap 10 5 - 14 mmol/L 09/03/2023 5:20 [facility] Glucose 116(H) 70 - 99 mg/dl 09/03/2023 5:20 [facility] Calcium 9.1 8.5 - 10.5 mg/dL 09/03/2023 5:20 [facility] BUN 20 10 - 26 mg/dL 09/03/2023 5:20 [facility] Creatinine 1.21 0.66 - 1.25 mg/dL 09/03/2023 5:20 [facility] eGFR 79 >60 mL/min/1.73 m2 09/03/2023 5:20 [facility] Blood VENOUS BLOOD / Unknown Venipuncture / Unknown 09/03/2023 4:57 EDT 09/03/2023 5:00 EDT Ellen Pang MD CHEMISTRY & BLOOD GA S ORDERABLES Performing Organization Address City/State/[facility] Co de Phone Number [facility] [address] [place] [address] * (ABNORMAL) COMPLETE BLOOD COUNT AND DIFFERENTIAL (09/03/2023 4:57 EDT) WBC 8.67 4.00 - 10.40 K/cmm 09/03/2023 5:08 [facility] RBC 4.92 4.36 - 5.78 M/cmm 09/03/2023 5:08 [facility] Hemoglobin 13.0(L) 13.8 - 17.3 g/dL 09/03/2023 5:08 [facility] HCT 40.0 39.5 - 50.2 % 09/03/2023 5:08 [facility] MCV 81 81 - 95 fL 09/03/2023 5:08 [facility] MCH 26.4(L) 27.6 - 33.0 pg 09/03/2023 5:08 [facility] MCHC 32.5(L) 32.8 - 36.4 g/dL 09/03/2023 5:08 [facility] RDW-CV 13.6 <14.2 % 09/03/2023 5:08 [facility] RDW-SD 39.9 <46.0 fl 09/03/2023 5:08 [facility] PLT 285 141 - 377 K/cmm 09/03/2023 5:08 [facility] MPV 9.4(L) 9.5 - 12.7 fL 09/03/2023 5:08 [facility] % Neutrophils 66.6 % 09/03/2023 5:08 [facility] % Lymphocytes 21.6 % 09/03/2023 5:08 [facility] % Monocytes 7.8 % 09/03/2023 5:08 [facility] % Eosinophils 3.1 % 09/03/2023 5:08 [facility] % Basophils 0.7 % 09/03/2023 5:08 [facility] % Immature Grans 0.2 % 09/03/19 5:08 [facility] Absolute Neutrophils 5.77 2.20 - 8.85 K/cmm 09/03/2023 5:08 [facility] Absolute Lymphocytes 1.87 1.09 - 3.30 K/cmm 09/03/2023 5:08 [facility] Absolute Monocytes 0.68 0.10 - 0.80 K/cmm 09/03/2023 5:08 [facility] Absolute Eosinophils 0.27 0.03 - 0.61 K/cmm 09/03/2023 5:08 [facility] ABS Basophils 0.06 0.01 - 0.11 K/cmm 09/03/2023 5:08 [facility] Absolute Immature Grans 0.02 0.00 - 0.06 K/cmm 09/03/2023 5:08 [facility] Type of Differential: Auto 09/03/2023 5:08 [facility] Blood VENOUS BLOOD / Unknown Venipuncture / Unknown 09/03/2023 4:57 EDT 09/03/2023 5:00 EDT Ellen Pang MD PACKAGES & DNA PROBE ORDERABLES [facility] [address] [place] [address] documented in this encounter Visit Diagnoses Diagnosis Orchitis- Primary Orchitis and epididymitis, unspecified documented in this encounter Administered Medications Inactive Administered Medications - up to 3 most recent administrations Medication Order MAR Action Action Date Dose Rate Site ciprofloxacin HCl (CIPRO) tablet 500 mg 500 mg, oral, NOW X1, 1 dose, On Wed09/03/23 at 0830, Type of Therapy: Empiric, Suspected Indication (Select all that apply): Other, Other Indication: orchitis, Controlled Antibiotic Has ID Approved? No, Please select the appropriate choice: One time dose in ED, subsequent doses required ID approval, STAT Given 09/03/2023 8:29 EDT 500 mg ketOROLAC (TORADOL) injection 15 mg 15 mg, intravenous, NOW X1, 1 dose, On Wed09/03/23 at 0815, STAT Given 09/03/2023 8:16 EDT 15 mg morphine injection 4 mg 4 mg, intravenous, NOW X1, 1 dose, On Wed09/03/23 at 0500, STAT Given 09/03/2023 5:00 EDT 4 mg documented in this encounter Active and Recently Administered Medications Times are shown in EDT. Scheduled Medication Order 09/01/2023 09/02/2023 09/03/2023 ciprofloxacin HCl (CIPRO) tablet 500 mg (COMPLETED) 500 mg, oral, NOW X1, 1 dose, On Wed09/03/23 at 0830, Type of Therapy: Empiric, Suspected Indication (Select all that apply): Other, Other Indication: orchitis, Controlled Antibiotic Has ID Approved? No, Please select the appropriate choice: One time dose in ED, subsequent doses required ID approval, STAT 0829 (Given - Provid er: Erin Fountain RN) ketOROLAC (TORADOL) injection 15 mg (COMPLETED) 15 mg, intravenous, NOW X1, 1 dose, On Wed09/03/23 at 0815, STAT 0816 (Given - Provid er: Erin Fountain RN) morphine injection 4 mg (COMPLETED) 4 mg, intravenous, NOW X1, 1 dose, On Wed09/03/23 at 0500, STAT 0500 (Given - Provid er: Erin Fountain RN) documented in this encounter Care Teams Fire Marshal [employer]inery Relationship Specialty Start Date End Date None, Provider PCP - General 09/03/23 documented as of this encounter
--- OUTSIDE RECORDS SUMMARY | 2023-10-22 21:25 | XMS_ITS | Encounter Summary ---
Author Organization [facility] Address [address] [place] [address] Care Team Providers Care Riveter Pneumatic Name Role Phone None, Provider Primary Care Provider Unavailabl e Encounter Details Date Type Department Care Team (Late st Contact Info) Description 10/07/[address] [facility] CT Scan [address] [place] [address] Abbey Evans Social History Tobacco Use Types Packs/Day Years Used Date Smoking Tobacco: Never Smokeless Tobacco: Never Alcohol Use Standard Drinks/Week Comments Not Currently 0 (1 standard drink = 0.6 oz pur e alcohol) rarely Sex and Gender Information Value Date Recorded Sex Assigned at Not on file Gender Identity Male 09/03/2023 4:52 EDT Sexual Orientation Not on file documented as of this encounter Functional Status Functional Status Response Date of Assess ment Are you deaf or do you have serious difficulty h earing? No 09/03/2023 documented as of this encounter Plan of Treatment Upcoming Encounters Date Type Department Care Team (Late st Contact Info) Description 11/10/2023 9:[address] [facility] CT Scan [address] [place] [address] documented as of this encounter Visit Diagnoses Not on filedocumented in this encounter Care Teams Riveter Pneumatic Relationship Specialty Start Date End Date None, Provider PCP - General 09/03/23 documented as of this encounter
--- OUTSIDE RECORDS SUMMARY | 2023-10-22 21:25 | XMS_ITS | Encounter Summary ---
Author Organization [facility] Address [address] [place] [address] Care Team Providers Care Account Information Clerk Name Role Phone None, Provider Primary Care Provider Unavailabl e Encounter Details Date Type Department Care Team (Latest Contact Info) Description 09/03/2023 Travel Social History Tobacco Use Types Packs/Day Years [...] Contact Info) Description 11/10/2023 9:00 EDT Appointment [facility] CT Scan [address] [place] [address] documented as of this encounter Visit Diagnoses Not on filedocumented in this encounter Care Teams Account Information Clerk Relationship Specialty Start Date End Date None, Provider PCP - General 09/03/23 documented as of this encounter
--- OUTSIDE RECORDS SUMMARY | 2023-10-22 21:25 | XMS_ITS | Clinical Summary ---
Author Organization [facility] Address [address] [place] [address] Care Team Providers Care Funeral Director And Embalmer Name Role Phone None, Provider Primary Care Provider Unavailabl e Allergies Active Allergy Reactions Criticality Noted Date Comments Amoxicillin 09/03/2023 Penicillins 09/03/2023 Sulfa (Sulfonamide Antibiotics) 08/11 Medications No known medications Encounters Date Type Department Care Team Description 10/07/2023 8:00 EDT Office Visit [facility] [address] [place] [address] Eliseo Gonzalez MD Gross hematuria (Primary Dx); Testicular pain, right 10/07/2023 Orders Only [facility] CT Scan [address] [place] [address] Abbey Evans 09/03/2023 4:38 EDT - 09/03/2023 8:52 EDT Emergency [facility] Emergency Department - [address] [place] [address] [place] [id number] Ellen Pang MD Siket, Matthew S, MD MSc Orchitis (Primary Dx) Discharge Disposition: Home or Self Care 09/03/2023 3:22 EDT - 09/03/2023 4:04 EDT Emergency [facility] Emergency Department [address] [place], [place] [id number] Yuliana Turner DO Right testicular pain (Primary Dx) Discharge Disposition: Another Health Care Institution Not Defined 09/03/2023 Travel from Last 3 Months Social History Tobacco Use Types Packs/Day Years Used Date Smoking Tobacco: Never Smokeless Tobacco: Never Tobacco Cessation:Counseling Given: Not Answered Alcohol Use Standard Drinks/Week Comments Not Currently 0 (1 standard drink = 0.6 oz pur e alcohol) rarely Sex and Gender Information Value Date Recorded Sex Assigned at Not on file Gender Identity Male 09/03/2023 4:52 EDT Sexual Orientation Not on file Obstetrics History Last Filed Vital Signs Vital Sign Reading [...] Body Mass Index 36.34 09/03/2023 0450 EDT Plan of Treatment Upcoming Encounters Date Type Department Care Team (Late st Contact Info) Description 11/10/2023 9:00 EDT Appointment [facility] CT Scan [address] [place] [address] Health Maintenance Due Date Last Done Comments Hepatitis C Screen 1986 Hepatitis B Vaccine (1 of 3 - 19+ 3-dose series) 07/05 COVID-19 Vaccine (2022- season) 2022 Procedures Procedure Name Priority Date/Time Associated Diagnosis Comments POCT URINALYSIS Routine 10/07/2023 Gross hematuria Testicular pain, right URINE CHEMICAL (DIP) & SEDIMENT (MICRO) WITH REFLEX TO CULTURE STAT 09/03/2023 8:29 EDT CHLAMYDIA/N. GONORRHOEAE AMPLIFIED NUCLEIC ACID Routine 09/03/2023 8:29 EDT US SCROTUM WITH LIMITED DUPLEX STAT 09/03/2023 5:40 EDT TYPE AND SCREEN STAT 09/03/2023 4:57 EDT PTT STAT 09/03/2023 4:57 EDT PROTIME STAT 09/03/2023 4:57 EDT BASIC METABOLIC PANEL (BMP) STAT 09/03/2023 4:57 EDT COMPLETE BLOOD COUNT AND DIFFERENTIAL STAT 09/03/2023 4:57 EDT COMPREHENSIVE METABOLIC PANEL (CMP) STAT 09/03/2023 3:42 EDT COMPLETE BLOOD COUNT AND DIFFERENTIAL STAT 09/03/2023 3:41 EDT from Last 3 Months Results * (ABNORMAL) POCT URINALYSIS, CLINITEK NON-INTERFACED (10/07/2023) Color, UA Yellow Yellow, Colorless [facility] Clarity, UA Clear Clear [facility] PO INT OF CARE Glucose, UA Negative Negative mg/dL [facility] POINT OF CARE Bilirubin, UA Negative Negative [facility] Ketones, UA Negative Negative mg/dL [facility] POINT [facility] Spec Grav, UA >=1.030(A) 1.001 - 1.030 [facility] POINT OF CARE Blood, UA Negative Negative [facility] PO[facility] T [facility] C[facility] pH, UA 5.5 8.5 [facility] PO[facility] T [facility] CARE Protein, UA Negative Negative mg/dL [facility] POINT OF CARE Urobilinogen, UA 0.2 0.2 - 1.0 E.U./dL [facility] POINT [facility] Nitrite, UA Negative Negative [facility] PO INT OF CARE Leuk Esterase Negative Negative [facility] POINT OF CARE Comment [facility] POIN T OF CARE Urine URINE SPECIMEN OBTAINED BY CLEAN CATCH PROCEDURE / Unknown 10/07/2023 Eliseo Gonzalez MD POINT OF CARE TEST O RDERABLES [facility] POINT OF CARE * (ABNORMAL) UA CHEMICAL & SEDIMENT + [...] 09/03/2023 9:05 [facility] Specific [place], Urine 1.034(H) 1.001 - 1.030 09/03/2023 9:05 [...] 09/03/2023 8:29 EDT 09/03/2023 8:33 EDT Narrative [facility] - 09/03/2023 9:05 EDT NOTE: Reflex to Urine Culture test is not indicated based on Urine Sediment Analysis results. Urine Sediment Analysis results are unreliable on urines that are unrefrigerated for >2 hrs or refrigerated >8 hrs. Johnny Teran MD, MSc URINALYSIS ORDERA BLES Performing Organization Address City/[facility]/ZIP Co de Phone Number [facility] [address], [place] [id number] * CHLAMYDIA/N. GONORRHOEAE AMPLIFIED RNA (09/03/2023 8:29 EDT) Neisseria gonorrhoeae Result Negative Negative 09/03/2023 14:29 EDT [facility] Chlamydia trachomatis Result Negative Negative 09/03/2023 14:29 EDT [facility] Urine URINE / Unknown Urine Collect / Unknown 09/03/2023 8:29 EDT 09/03/2023 8:36 EDT Johnny Teran MD, MSc MICROBIOLOGY - GE NERAL ORDERABLES Performing Organization Address [facility] Co de Phone Number [facility] [address] [place] [phone] * US SCROTUM WITH LIMITED DUPLEX (09/03/2023 [...] above interpretation and agree with the findings. [id number] Narrative 09/03/2023 8:45 EDT US SCROTUM WITH LIMITED DUPLEX ??09/03/2023 4:54 AM SIGNS AND SYMPTOMS/COMMENTS: acute onset R testicular pain at 0230 r/o torsion; COMPARISON: None DUPLEX: Indication For Duplex: Concern for testicular torsion and/or mass Technique: Color and spectral Doppler ultrasound of the scrotum was performed. Resulting Agency Comment [id number] Procedure Note Taqueria Pineda MD - 09/03/2023 [...] the above interpretation andagree with the findings. [id number] Ellen Pang MD IMG US ORDERABLES * PTT (09/03/2023 4:57 EDT) PTT 31 26 - 37 secs 09/03/2023 5:29 EDT [facility] Blood VENOUS BLOOD / Unknown Venipuncture / Unknown 09/03/2023 4:57 EDT 09/03/2023 5:04 EDT Ellen Pang MD HEMATOLOGY & PF4 ORD ERABLES [facility] [address] [place] [id number] * PROTIME (09/03/2023 4:57 EDT) I.N.R. 1.1 0.9 - 1.1 Ratio 09/03/2023 5:29 EDT [facility] Pro Time 11.8 9.7 - 12.8 secs 09/03/2023 5:29 EDT [facility] Blood VENOUS BLOOD / Unknown Venipuncture / Unknown 09/03/2023 4:57 EDT 09/03/2023 5:04 EDT Narrative [facility] - 09/03/2023 5:29 EDT Moderate Intensity Coumadin INR = 2.0-3.0 Adjustments in anticoagulant therapy dose should be based on the INR and NOT on the Protime. Ellen Pang MD HEMATOLOGY & PF4 ORD ERABLES [facility] [address] [place] [address] * (ABNORMAL) COMPLETE BLOOD COUNT AND DIFFERENTIAL (09/03/2023 4:57 EDT) Only the most recent of2 resultswithin the time period is included. WBC 8.67 4.00 - 10.40 K/cmm 09/03/2023 [...] Pang MD PACKAGES & DNA PROBE ORDERABLES [facility] [address], [place] [id number] * TYPE AND SCREEN (09/03/2023 4:57 EDT) ABO A 09/03/2023 5:40 EDT [facility] Rh Factor Positive 09/03/2023 5:40 EDT [facility] Antibody Screen Negative 09/03/2023 5:40 EDT [facility] Specimen Expires: 09/06/2023 @ 23:59 09/03/2023 5:40 EDT [facility] Blood VENOUS BLOOD / Unknown Venipuncture / Unknown 09/03/2023 4:57 EDT 09/03/2023 5:02 EDT Ellen Pang MD BLOOD BANK TESTS Performing Organization Address City/State/[facility] Co de Phone Number [facility] [address] [place] [address] * (ABNORMAL) BASIC METABOLIC PANEL (BMP) (09/03/2023 [...] eGFR 79 >60 mL/min/1.73 m2 09/03/2023 5:20 EDT [facility] Blood VENOUS BLOOD / Unknown Venipuncture / Unknown 09/03/2023 4:57 EDT 09/03/2023 5:00 EDT Ellen Pang MD CHEMISTRY & BLOOD GA S ORDERABLES [facility] [address] [place] [address] * (ABNORMAL) COMPREHENSIVE METABOLIC PANEL (CMP) (09/03/2023 3:42 EDT) Sodium 146(H) 136 - 145 mmol/L 09/03/2023 4:03 [facility] Potassium 4.0 3.5 - 5.0 mmol/L 09/03/2023 4:03 [facility] Chloride 108 96 - 110 mmol/L 09/03/2023 4:03 [facility] CO2 Total 27 22 - 32 mmol/L 09/03/2023 4:03 [facility] Glucose 115(H) 70 - 99 mg/dl 09/03/2023 4:03 [facility] BUN 19 10 - 26 mg/dL 09/03/2023 4:03 [facility] Creatinine 1.30(H) 0.66 - 1.25 mg/dL 09/03/2023 4:03 [facility] eGFR 73 >60 mL/min/1.7 3m2 09/03/2023 4:03 [facility] Total Protein 7.7 6.3 - 8.2 g/dL 09/03/2023 4:03 [facility] Albumin 4.6 3.4 - 4.9 g/dL 09/03/2023 4:03 [facility] Alkaline Phosphatase 73 38 - 126 U/L 09/03/2023 4:03 [facility] AST 33 15 - 46 U/L 09/03/2023 4:03 [facility] ALT 39 <50 U/L 09/03/2023 4:03 EDT [facility] Bilirubin, Total 0.8 <1.4 mg/dL 09/03/19 4:03 EDT [facility] Calcium 9.8 8.5 - 10.5 mg/dL 09/03/2023 4:03 EDT [facility] Albumin/Globulin Ratio 1.5 1.0 - 2.5 09/03/2023 4:03 EDT [facility] Anion Gap 11 5 - 14 mmol/L 09/03/2023 4:03 EDT [facility] Blood VENOUS BLOOD / Unknown Venipuncture / Unknown 09/03/2023 3:42 EDT 09/03/2023 3:44 EDT Yuliana Turner DO CHEMISTRY & BLOO D GAS ORDERABLES [facility] [address] [place] [address] from Last 3 Months Care Teams Funeral Director And Embalmer Relationship Specialty Start Date End Date None, Provider PCP - General 09/03/23
--- OUTSIDE RECORDS SUMMARY | 2023-10-22 21:25 | XMS_ITS | Referral Summary ---
Author Organization [facility] Address [address] [place] [address] Care Team Providers Care Heavy Equipment Supervisor Name Role Phone None, Provider Primary Care Provider Unavailabl e Encounters Date Type Department Care Team Description 10/07/2023 Orders Only [facility] CT Scan [address] [place] [address] FabiojoseAbbey 10/07/2023 8:00 EDT Office Visit [facility] Urology Clinic [address] [place] [address] Eliseo Gonzalez MD Gross hematuria (Primary Dx); Testicular pain, right 09/03/2023 4:38 EDT - 09/03/2023 8:52 EDT Emergency [facility] Emergency Department - Main [address] [address] Ellen Pang MD Siket, Matthew S, MD MSc Orchitis (Primary Dx) Discharge Disposition: Home or Self Care 09/03/2023 Travel 09/03/2023 3:22 EDT - 09/03/2023 4:04 EDT Emergency [facility] Emergency Department [address] [place] [address] Yuliana Turner DO Right testicular pain (Primary Dx) Discharge Disposition: Another Health Care Institution Not Defined from Last 3 Months Allergies Active Allergy Reactions Criticality Noted Date Comments Amoxicillin 09/03/2023 Penicillins 09/03/2023 Sulfa (Sulfonamide Antibiotics) 08/11 Medications No known medications Social History Tobacco Use Types Packs/Day Years Used Date Smoking Tobacco: Never Smokeless Tobacco: Never Tobacco Cessation:Counseling Given: Not Answered Alcohol Use Standard Drinks/Week Comments Not Currently 0 (1 standard drink = 0.6 oz pur e alcohol) rarely Sex and Gender Information Value Date Recorded Sex Assigned at Not on file Gender Identity Male 09/03/2023 4:52 EDT Sexual Orientation Not on file Last Filed Vital Signs Vital Sign Reading [...] Body Mass Index 36.34 09/03/2023 0450 EDT Functional Status Functional Status Response Date of Assess ment Are you deaf or do you have serious difficulty h earing? No 09/03/2023 Plan of Treatment Upcoming Encounters Date Type Department Care Team (Late st Contact Info) Description 11/10/2023 9:00 EDT Appointment [facility] CT Scan [address] [place] [address] Procedures Procedure Name Priority Date/Time Associated Diagnosis [...] NON-INTERFACED (10/07/2023) Color, UA Yellow Yellow, Colorless [facility] POINT OF CARE Clarity, UA Clear Clear [facility] Glucose, UA Negative Negative mg/dL [facility] POINT [facility] CARE Bilirubin, UA Negative Negative [facility] POINT [facility] CARE Ketones, UA Negative Negative mg/dL [facility] POINT [facility] CARE Spec Grav, UA >=1.030(A) 1.001 - 1.030 U [facility] POINT OF CARE Blood, UA Negative Negative [facility] pH, UA 5.5 8.5 [facility] Protein, UA Negative Negative mg/dL [facility] POINT OF CARE Urobilinogen, UA 0.2 0.2 - 1.0 E.U./dL [facility] POINT OF CARE Nitrite, UA Negative Negative [facility] Leuk Esterase Negative Negative [facility] Comment [facility] Urine URINE SPECIMEN OBTAINED BY CLEAN CATCH PROCEDURE / Unknown 10/07/2023 Eliseo Gonzalez MD POINT OF CARE TEST O RDERABLES [facility] POINT OF CARE * (ABNORMAL) UA CHEMICAL & SEDIMENT + REFLEX TO CULTURE (09/03/2023 8:29 EDT) Color UA Yellow Colorless, Yellow 09/03/2023 9:05 EDT [facility] Clarity UA Cloudy(A) Clear 09/03/2023 9:05 [facility] Glucose UA Negative Negative mg/dL 09/03/2023 9:05 [facility] Bilirubin UA Negative Negative 09/03/2023 9:05 [facility] Ketones UA Negative Negative 09/03/2023 9:05 [facility] Specific [place], Urine 1.034(H) 1.001 - 1.030 09/03/2023 9:05 [facility] Blood UA 3+(A) Negative 09/03/2023 9:05 [facility] Urobilinogen UA 1.0 0.2-1.0 mg/dL mg/dL 09/03/2023 9:05 [facility] Nitrite UA Negative Negative 09/03/2023 9:05 [facility] Leukocyte Esterase UA Negative Negative 09/03/2023 9:05 [facility] Protein UA 1+(A) Negative mg/dL 09/03/2023 9:05 [facility] pH, UA 5.5 <8.5 09/03/2023 9:05 [facility] Urine RBC Count, Auto 11 - 50(A) 0 - 2 Cells/HPF 09/03/2023 9:05 [facility] Urine WBC Count, Auto 0 - 3 0 - 3 Cells/HPF 09/03/2023 9:05 [facility] Urine Squamous Count, Auto None Seen None Seen Cells/HPF 09/03/2023 9:05 [facility] Urine Hyaline Cast Count, Auto <=10 <=10 Casts/LPF 09/03/2023 9:05 [facility] Urine Bacteria Count, Auto None Seen None Seen Bacteria/HP F 09/03/2023 9:05 [facility] Urine URINE SPECIMEN OBTAINED BY CLEAN CATCH PROCEDURE / Unknown Urine Collect / Unknown 09/03/2023 8:29 EDT 09/03/2023 8:33 [facility] - 09/03/2023 9:05 EDT NOTE: Reflex to Urine Culture test is not indicated based on Urine Sediment Analysis results. Urine Sediment Analysis results are unreliable on urines that are unrefrigerated for >2 hrs or refrigerated >8 hrs. Johnny Teran MD MSc URINALYSIS ORDERA BLES Performing Organization Address City/[facility]/ZIP Co de Phone Number [facility] [address] [place], [place] [address] * CHLAMYDIA/N. GONORRHOEAE AMPLIFIED RNA (09/03/2023 8:29 EDT) Neisseria gonorrhoeae Result Negative Negative 09/03/2023 14:29 EDT [facility] Chlamydia trachomatis Result Negative Negative 09/03/2023 14:29 EDT [facility] Urine URINE / Unknown Urine Collect / Unknown 09/03/2023 8:29 EDT 09/03/2023 8:36 EDT Johnny Teran MD MSc MICROBIOLOGY - GE NERAL ORDERABLES Performing Organization Address [facility]/ZIP Co de Phone Number [facility] [address] [place], [place] [id number] * US SCROTUM WITH LIMITED DUPLEX (09/03/2023 [...] above interpretation and agree with the findings. [id number] Narrative 09/03/2023 8:45 EDT US SCROTUM WITH LIMITED DUPLEX ??09/03/2023 4:54 AM SIGNS AND SYMPTOMS/COMMENTS: acute onset R testicular pain at 0230 r/o torsion; COMPARISON: None DUPLEX: Indication For Duplex: Concern for testicular torsion and/or mass Technique: Color and spectral Doppler ultrasound of the scrotum was performed. Resulting Agency Comment [id number] Procedure Note Taqueria Pineda MD - 09/03/2023 [...] the above interpretation andagree with the findings. [id number] Ellen Pang MD IMG US ORDERABLES * PTT (09/03/2023 4:57 EDT) PTT 31 26 - 37 secs 09/03/2023 5:29 EDT [facility] Blood VENOUS BLOOD / Unknown Venipuncture / Unknown 09/03/2023 4:57 EDT 09/03/2023 5:04 EDT Ellen Pang MD HEMATOLOGY & PF4 ORD ERABLES [facility] [address] [place] [address] * PROTIME (09/03/2023 4:57 EDT) I.N.R. 1.1 0.9 - 1.1 Ratio 09/03/2023 5:29 EDT [facility] Pro Time 11.8 9.7 - 12.8 secs 09/03/2023 5:29 EDT [facility] Blood VENOUS BLOOD / Unknown Venipuncture / Unknown 09/03/2023 4:57 EDT 09/03/2023 5:04 EDT Narrative [facility] - 09/03/2023 5:29 EDT Moderate Intensity Coumadin INR = 2.0-3.0 Adjustments in anticoagulant therapy dose should be based on the INR and NOT on the Protime. Ellen Pang MD HEMATOLOGY & PF4 ORD ERABLES [facility] [address] [place] [address] * (ABNORMAL) COMPLETE BLOOD COUNT AND DIFFERENTIAL (09/03/2023 4:57 EDT) Only the most recent of2 resultswithin the time period is included. WBC 8.67 4.00 - 10.40 K/cmm 09/03/2023 5:08 [facility] RBC 4.92 4.36 - 5.78 M/cmm 09/03/2023 5:08 [facility] Hemoglobin 13.0(L) 13.8 - 17.3 g/dL 09/03/2023 5:08 [facility] HCT 40.0 39.5 - 50.2 % 09/03/2023 5:08 [facility] MCV 81 81 - 95 fL 09/03/2023 5:08 [facility] MCH 26.4(L) 27.6 - 33.0 pg 09/03/2023 5:08 [facility] MCHC 32.5(L) 32.8 - 36.4 g/dL 09/03/2023 5:08 [facility] RDW-CV 13.6 <14.2 % 09/03/2023 5:08 [facility] RDW-SD 39.9 <46.0 fl 09/03/2023 5:08 [facility] PLT 285 141 - 377 K/cmm 09/03/2023 5:08 [facility] MPV 9.4(L) 9.5 - 12.7 fL 09/03/2023 5:08 [facility] % Neutrophils 66.6 % 09/03/2023 5:08 [facility] % Lymphocytes 21.6 % 09/03/2023 5:08 [facility] % Monocytes 7.8 % 09/03/2023 5:08 [facility] % Eosinophils 3.1 % 09/03/2023 5:08 [facility] % Basophils 0.7 % 09/03/2023 5:08 [facility] % Immature Grans 0.2 % 09/03/19 5:08 [facility] Absolute Neutrophils 5.77 2.20 - 8.85 K/cmm 09/03/2023 5:08 [facility] Absolute Lymphocytes 1.87 1.09 - 3.30 K/cmm 09/03/2023 5:08 [facility] Absolute Monocytes 0.68 0.10 - 0.80 K/cmm 09/03/2023 5:08 [facility] Absolute Eosinophils 0.27 0.03 - 0.61 K/cmm 09/03/2023 5:08 [facility] ABS Basophils 0.06 0.01 - 0.11 K/cmm 09/03/2023 5:08 [facility] Absolute Immature Grans 0.02 0.00 - 0.06 K/cmm 09/03/2023 5:08 [facility] Type of Differential: Auto 09/03/2023 5:08 [facility] Blood VENOUS BLOOD / Unknown Venipuncture / Unknown 09/03/2023 4:57 EDT 09/03/2023 5:00 EDT Ellen Pang MD PACKAGES & DNA PROBE ORDERABLES [facility] [address] [place] [address] * TYPE AND SCREEN (09/03/2023 4:57 EDT) ABO A 09/03/2023 5:40 EDT [facility] Rh Factor Positive 09/03/2023 5:40 EDT [facility] Antibody Screen Negative 09/03/2023 5:40 T [facility] Specimen Expires: 09/06/2023 @ 23:59 09/03/2023 5:40 T [facility] Blood VENOUS BLOOD / Unknown Venipuncture / Unknown 09/03/2023 4:57 EDT 09/03/2023 5:02 EDT Ellen Pang MD BLOOD BANK TESTS [facility] [address] [place] [address] * (ABNORMAL) BASIC METABOLIC PANEL (BMP) (09/03/2023 4:57 EDT) Sodium 142 136 - 145 mmol/L 09/03/2023 5:20 [facility] Potassium 4.2 3.5 - 5.0 mmol/L 09/03/2023 5:20 [facility] Chloride 112(H) 96 - 110 mmol/L 09/03/2023 5:20 [facility] CO2 Total 20(L) 22 - 32 mmol/L 09/03/2023 5:20 [facility] Anion Gap 10 5 - 14 mmol/L 09/03/2023 5:20 [facility] Glucose 116(H) 70 - 99 mg/dl 09/03/2023 5:20 [facility] Calcium 9.1 8.5 - 10.5 mg/dL 09/03/2023 5:20 [facility] BUN 20 10 - 26 mg/dL 09/03/2023 5:20 [facility] Creatinine 1.21 0.66 - 1.25 mg/dL 09/03/2023 5:20 [facility] eGFR 79 >60 mL/min/1.73 m2 09/03/2023 5:20 [facility] Blood VENOUS BLOOD / Unknown Venipuncture / Unknown 09/03/2023 4:57 EDT 09/03/2023 5:00 EDT Ellen Pang MD CHEMISTRY & BLOOD GA S ORDERABLES [facility] [address] [place] [address] * (ABNORMAL) COMPREHENSIVE METABOLIC PANEL (CMP) (09/03/2023 3:42 EDT) Sodium 146(H) 136 - 145 mmol/L 09/03/2023 4:03 [facility] Potassium 4.0 3.5 - 5.0 mmol/L 09/03/2023 4:03 [facility] Chloride 108 96 - 110 mmol/L 09/03/2023 4:03 [facility] CO2 Total 27 22 - 32 mmol/L 09/03/2023 4:03 [facility] Glucose 115(H) 70 - 99 mg/dl 09/03/2023 4:03 [facility] BUN 19 10 - 26 mg/dL 09/03/2023 4:03 [facility] Creatinine 1.30(H) 0.66 - 1.25 mg/dL 09/03/2023 4:03 [facility] eGFR 73 >60 mL/min/1.7 3m2 09/03/2023 4:03 [facility] Total Protein 7.7 6.3 - 8.2 g/dL 09/03/2023 4:03 [facility] Albumin 4.6 3.4 - 4.9 g/dL 09/03/2023 4:03 [facility] Alkaline Phosphatase 73 38 - 126 U/L 09/03/2023 4:03 [facility] AST 33 15 - 46 U/L 09/03/2023 4:03 [facility] ALT 39 <50 U/L 09/03/2023 4:03 [facility] Bilirubin, Total 0.8 <1.4 mg/dL 09/03/19 4:03 EDT [facility] Calcium 9.8 8.5 - 10.5 mg/dL 09/03/2023 4:03 EDT [facility] Albumin/Globulin Ratio 1.5 1.0 - 2.5 09/03/2023 4:03 EDT [facility] Anion Gap 11 5 - 14 mmol/L 09/03/2023 4:03 EDT [facility] Blood VENOUS BLOOD / Unknown Venipuncture / Unknown 09/03/2023 3:42 EDT 09/03/2023 3:44 EDT Yuliana Turner DO CHEMISTRY & BLOO D GAS ORDERABLES [facility] [address] [place] [address] from Last 3 Months Care Teams Heavy Equipment Supervisor Relationship Specialty Start Date End Date None, Provider PCP - General 09/03/23
--- OUTSIDE RECORDS SUMMARY | 2023-10-22 21:25 | XMS_ITS | Encounter Summary ---
Author Organization [facility] Address [address] [place] [address] Care Team Providers Care Quarry Supervisor Dimension Stone Name Role Phone None, Provider Primary Care Provider Unavailabl e Reason for Referral * Radiology Services (Routine/Next Available) - Authorization Not Required Specialty Diagnoses / Procedures Referred By Sayra arceo Referred To Contact Diagnoses Gross hematuria Procedures CT UROGRAM Eliseo Gonzalez MD [address] [place] [address] [address] [facility] Referral ID Status Reason Start Date Expiration Date Visits Requested Visits Authorized [id number] Authorization Not Required 10/07/2023 1 1 Reason for Visit * Reason Comments New Patient Visit * Consult (Routine/Next Available) - Authorization Not Required Specialty Diagnoses / Procedures Referred By Sayra arceo Referred To Contact Urology Diagnoses Orchitis Johnny Teran MD [facility] [address] [facility] [address] [place] [address] [facility] [address] [place] [id number] Referral ID Status Reason Start Date Expiration Date Visits Requested Visits Authorized [id number] Authorization Not Required Specialty Services Required 4 1 1 Encounter Details Date Type Department Care Team (Late st Contact Info) Description 10/07/2023 8:00 EDT Office Visit [facility] [address] [place] [address] Eliseo Gonzalez MD [address] [place] [address] [place] [address] Gross hematuria (Primary Dx); Testicular pain, right Social History Tobacco Use Types Packs/Day Years [...] No 09/03/2023 documented as of this encounter Progress Notes * Eloy Power MA - 10/07/2023 0800 EDT Chart Prep Reason for Visit: Orchitis Last Seen: [employer] Med's: NA Other pertinent information from chart: US was WNL. ED said: 0818 At this time, the patient was stable for discharge home due to reassuring ultrasound.Will send him home with ciprofloxacin prescription. Return precautions were discussed. * Eliseo Gonzalez MD - 10/07/2023 0800 EDT Chief Complaint: No chief complaint on file. Reason for Consult: Urology was asked to see Pedro at the request of Provider None for evaluation of orchitis. HPI: Pedro is a 38 y.o. male with presentation 09/03/23 with acute right testicular pain: transferred to [facility] for sono imaging to R/O testicular torsion. Ultimately determined that he had acute orchitis without evidence testicular torsion. Rx Cipro. UA on presentation: cloudy, 3+ RBC . Still with i ntermittent right inguinal and testicular pain. 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 States he has passed multiple stones in the past: recently moved her from [place]. No records available.Negative UA here. 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 No dysuria. No issues with BM. There is no problem list on file for this patient. PMH PSH No past medical history on file. No past surgical history on file. Social History Family History Social History Tobacco Use Smoking status: Never Smokeless tobacco: Never Substance Use Topics Alcohol use: Not Currently Comment: rarely No family history on file. Medications No current outpatient medications on file. Allergies Allergies Allergen Reactions Amoxicillin Penicillins Sulfa (Sulfonamide Antibiotics) Review of Systems: Review of Systems Constitutional: Positive for malaise/fatigue. HENT: Negative. Eyes: Negative. Respiratory: Negative. Cardiovascular: Negative. Gastrointestinal: Positive for abdominal pain. Genitourinary: Negative. Musculoskeletal: Positive for joint pain. Skin: Negative. Neurological: Negative. Endo/Heme/Allergies: Negative. Psychiatric/Behavioral: Negative. Objective/Physical Exam: Vital Signs: There were no vitals taken for this visit. Exam: Constitutional: Alert, in no distress. Respiratory: Respirations unlabored. Cardiovascular: Pulse regular. Gastrointestinal: Abdomen soft, non tender. Overweight Renal: No CVA tenderness. Genital: Circumcised phallus with patent meatus at the tip, no plaques. Testes descended bilaterally without masses. Visually no inflammation or enlargement of scrotum. Minimal tenderness right testicle: no induration Rectal: deferred Musculoskeletal: Extremities warm without edema. Skin: Skin warm and dry. Neuro: alert and oriented Data Review: NA Labs: CBC: Lab Results Component Value Date WBC 8.67 09/03/2023 RBC 4.92 09/03/2023 HGB 13.0 (L) 09/03/2023 HCT 40.0 09/03/2023 MCV 81 09/03/2023 MCH 26.4 (L) 09/03/2023 MCHC 32.5 (L) 09/03/2023 PLT 285 09/03/2023 NEUTROABS 5.77 09/03/2023 BMP: Lab Results Component Value Date NA 142 09/03/2023 K 4.2 09/03/2023 CL 112 (H) 09/03/2023 CO2 20 (L) 09/03/2023 BUN 20 09/03/2023 CREATININE 1.21 09/03/2023 CALCIUM 9.1 09/03/2023 LABALBU 4.6 09/03/2023 U/A: Lab Results Component Value Date CLARITYU Cloudy (A) 09/03/2023 LABSPEC 1.034 (H) 09/03/2023 PHUR 5.5 09/03/2023 GLUCOSEU Negative 09/03/2023 BILIRUBINUR Negative 09/03/2023 KETONES Negative 09/03/2023 BLOODU 3+ (A) 09/03/2023 Other Studies: N/A Impression: Acute right testicular pain: seen at [facility] for sono which was negative for torsion. Reassured him that no evidence of testicular tumor. Still with intermittent right inguinal and scrotal pain. Negative UA today. States many stones in the past. Discussed that genital exam is really quite benign. Suggest CT imaging: rule out recurrent stone, ureteral obstruction etc. No evidence UTI today. He is amenable. Suggestions/Recommendations: as above Eliseo Gonzalez MD FACS documented in this encounter Miscellaneous Notes * Addendum Note - Addis Moise RN - 10/07/2023 0800 EDTAddended by: ADDIS MOISE on: 10/07/2023 08:27 Modules accepted: Orders documented in this encounter Plan of Treatment Upcoming Encounters Date Type Department Care Team (Late st Contact Info) Description 11/10/2023 9:00 EDT Appointment [facility] CT Scan [address] [place] [address] Scheduled Orders Name Type Priority Associated Diagnoses Orde r Schedule CT UROGRAM Imaging Routine Gross hematuria Expected: 10/14/2023 (Approximate), Expires: 10/06/2024 documented as of this encounter Procedures Procedure Name Priority Date/Time Associated Diagnosis Comments POCT URINALYSIS Routine 10/07/2023 Gross hematuria Testicular pain, right documented in this encounter Results * (ABNORMAL) POCT URINALYSIS, CLINITEK NON-INTERFACED (10/07/2023) Color, UA Yellow Yellow, Colorless [facility] Clarity, UA Clear Clear [facility] Glucose, UA Negative Negative mg/dL [facility] Bilirubin, UA Negative Negative [facility] Ketones, UA Negative Negative mg/dL [facility] Spec Grav, UA >=1.030(A) 1.001 - 1.030 U [facility] POINT [facility] CARE Blood, UA Negative Negative [facility] pH, UA 5.5 8.5 [facility] Protein, UA Negative Negative mg/dL [facility] Urobilinogen, UA 0.2 0.2 - 1.0 E.U./dL [facility] Nitrite, UA Negative Negative [facility] Leuk Esterase Negative Negative [facility] Comment [facility] Urine URINE SPECIMEN OBTAINED BY CLEAN CATCH PROCEDURE / Unknown 10/07/2023 Eliseo Gonzalez MD POINT OF CARE TEST O RDERABLES [facility] POINT OF CARE documented in this encounter Visit Diagnoses Diagnosis Gross hematuria- Primary Testicular pain, right Unspecified disorder of male genital organs documented in this encounter Care Teams Quarry Supervisor Dimension Stone Relationship Specialty Start Date End Date None, Provider PCP - General 09/03/23 documented as of this encounter
[2023-10-22 22:15] LABS: Troponin I < 50 ng/L (< or =60)
== END 2023-10-22 23:22 | disposition home or self-care (01) ==
PROVIDERS: Emergency Provider Nurse Practitioner Family
DX: R55 Syncope and collapse (principal); R07.9 Chest pain, unspecified; R53.1 Weakness; R00.0 Tachycardia, unspecified; Z82.49 Family history of ischemic heart disease and other diseases of the circulatory system
CPT/HCPCS: 70496; 70498; 74177; 80053; 83690; 93005; 96374; 99285; 71260; 81003; 84484; 85025; 93010; 99284; J3490

== ENCOUNTER 2025-01-20 19:17 | Emergency (ER) | payer MEDICAID, SELFPAY ==
[2025-01-20] VITALS (32 sets, daily range): BP systolic 108–158; BP diastolic 77–97; PULSE 55–90; RESP 16; TEMP 36.6; O2SAT 90–99
--- NOTE | 2025-01-20 19:30 | DI.CT_ITS ---
Exam(s) CT CHEST/ABD/PEL W EXAM: CT CHEST/ABD/PEL W CLINICAL HISTORY: epigastric, RUQ, flank pain, hematemesis TECHNIQUE: Imaging Protocol: Axial computed tomography images with coronal and sagittal reformatted images were created and reviewed. Lung Computer Aided Detection (CAD) was utilized. CONTRAST MATERIAL: Intravenous: Omnipaque 350 contrast volume:75 mL Oral: No COMPARISON: CT CT CHEST/ABD/PEL W from 10/22/2023 FINDINGS: CHEST: Tracheobronchial tree: Patent where visualized. No evidence of bronchiectasis. Pulmonary parenchyma: No consolidation or dominant measurable mass. No architectural distortion. Visualized thyroid gland: Unremarkable. Mediastinum and [place]: No dominant adenopathy or fluid collection. The esophagus is unremarkable. Pleura: No effusion or pneumothorax. Heart: The heart is not dilated. No coronary artery calcifications are seen. No pericardial effusion. Pulmonary arteries: The pulmonary arteries are insufficiently opacified due to the timing of the bolus. Aorta: Thoracic aorta non-dilated. Lymph nodes: Within normal limits. Soft tissues: Unremarkable. Bones:Within normal limits for the patient's age. ABDOMEN: Liver: The liver is of decreased attenuation suggesting fatty infiltration. No measurable mass. Portal, Superior Mesenteric, and Splenic Veins: Unremarkable. Gallbladder and Biliary Tract: No radiodense calculus or dilation. Pancreas: Normal density, no abnormal calcifications or inflammatory process. Spleen: Normal. Adrenals: No masses seen. Kidneys: Normal size, contour and axis. No radiodense stones or obstructive uropathy. No masses seen. Abdominal Aorta: Abdominal portion non-dilated. Bowel: No obstruction or bowel wall thickening. Appendix is unremarkable. Peritoneal Cavity: No ascites, collection or mesenteric inflammatory response. No free air. Lymph Nodes: Within normal limits. Bones: Within normal limits for the patient's age. Soft Tissues: There is a small fat containing umbilical hernia. PELVIS: Bladder: Symmetric distention, no gross wall thickening. Reproductive Organs: Unremarkable as visualized. Lymph Nodes: Within normal limits. Bones: Within normal limits. IMPRESSION: 1. Mild fatty infiltration of the liver. 2. No acute abdominal or pelvic process. 3. There is no acute pulmonary process. RADIATION DOSE DELIVERED: 800.82mGy.cm Total DLP DATA REPOSITORY: All CT scans at this facility are submitted to the National Radiology Data Registry (NRDR) Dose Index Registry (DIR) with the [employer] (ACR). RADIATION OPTIMIZATION: All CT scans at this facility use at least one of these dose optimization techniques: automated exposure control; mA and/or kV adjustment per patient size (includes targeted exams where dose is matched to clinical indication); or iterative reconstruction.
--- NOTE | 2025-01-20 19:30 | RT.EKG_ITS ---
APPROVED REPORT Exam: Resting ECG Reason for Exam: epigastric pain Patient Location: E HR:83 bpm ECG Measurements Heart Rate 83 AXIS CO 154 P 13 QRSd 101 QRS -13 QT 375 T 14 QTc 441 Conclusion Sinus rhythm...normal P axis, V-rate 60- 99 Inferior infarct, old...Q >35mS, II III aVF
[2025-01-20 19:46] LABS: Abs Immature Grans 0.04 10^3/uL (0.0-0.06); HCT 42.7 % (40.0-50.0); HGB 13.6 g/dL (13.5-17.5); Immature Grans % 0.4 %; MCH 26.6 pg (27.0-33.0); MCHC 31.9 % (32.0-36.0); MCV 83 fL (80-95); MPV 9.1 fL (8.0-11.0); Platelet Count 337 10^3/uL (130-400); RBC 5.12 10^6/uL (4.36-5.78); RDW 13.2 % (11.8-14.1); RDW-SD 40.0 fL; WBC 10.29 10^3/uL (4.4-10.8)
[2025-01-20] MEDS: Normal Saline 1,000 ML 1000 ML IV (19:48)
[2025-01-20] MEDS: Ondansetron 4 MG/2 ML VIAL IVP (19:50)
[2025-01-20] MEDS: HYDROmorphone 2 MG/ML SYR 0.5 MG IVP (19:51)
[2025-01-20] MEDS: Pantoprazole 40 MG VIAL IVP (19:53)
[2025-01-20 20:05] LABS: ALT 30 U/L (16-63); AST 19 U/L (15-37); Albumin 3.6 g/dL (3.4-5.0); Alkaline Phosphatase 81 U/L (46-116); Anion Gap 7.7 mmol/L (3-11); BUN 15 mg/dL (7-18); Bilirubin, Total 0.4 mg/dL (0.2-1.0); CO2 28.3 mmol/L (21.0-32.0); Calcium 8.9 mg/dL (8.5-10.1); Chloride 102 mmol/L (98-107); Estimated GFR 88.12 (mL/min/1.73m2); Glucose 90 mg/dL (74-106); Lipase 29 U/L (<78); Potassium 4.2 mmol/L (3.5-5.1); Sodium 138 mmol/L (136-145); Total Protein 7.9 g/dL (6.4-8.2)
[2025-01-20] MEDS: Normal Saline - Diluent 50 ML VIAL IJ (20:05)
[2025-01-20] MEDS: Omnipaque 350 MG/ML 100 ML BTL IJ (20:05)
[2025-01-20] MEDS: Normal Saline Flush 10 ML SYR IVP (20:06)
[2025-01-20 20:39] LABS: Lab Add On Test DONE
[2025-01-20 20:40] LABS: COVID-19 PCR Negative (Negative); RSV PCR Negative (Negative)
[2025-01-20 20:59] LABS: Troponin I 4 ng/L (<or=76)
[2025-01-20] MEDS: Ketorolac 15 MG/ML VIAL 7.5 MG IVP (22:01)
[2025-01-20] MEDS: diazePAM 10 MG/2 ML SYR 5 MG IVP (22:05)
[2025-01-20] MEDS: HYDROmorphone 2 MG/ML SYR 1 MG IVP (22:21)
--- NOTE | 2025-01-20 22:39 | ED.GENADUL_ITS ---
Discharge Plan Disposition Patient Disposition: Home Condition: Stable Discharge Details Clinical Impression: Back pain Primary Care Provider: [facility] Provider: Yaima Hoyos Home Meds and New Rx's Prescriptions: New oxycodone 5 mg tablet 5 mg PO Q8H PRNQty: 6 0RF diazepam [Valium] 5 mg tablet 5 mg PO BID PRNQty: 10 0RF prednisone 20 mg tablet 40 mg PO ONCE Qty: 10 0RF Discharge Instructions Instructions: Managing acute pain at home Additional Instructions: Take Motrin 600 mg every 8 hours with food take Valium 5 mg up to twice daily as needed for pain, try not to take within 6 hours of taking oxycodone You should not operate your vehicle within 8 hours of taking either of these medications Light stretching warm or cold compresses what ever feels better 8 hours after taking these medicines I am placing on a list to establish care with a primary care physician take omeprazole daily Please return earlier should you have new or worsening complaints Discharge Data Discharge Date/Time-TO BE ENTERED AT DEPARTURE: 01/20/25 23:45 HPI General Date/Time Provider Initiated Documentation: 01/20/25 19:18 . HPI Narrative: This 39-year-old male presents with back pain that started 2 days ago. 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 He states he may or may not have had some blood in his vomit today and 1 week ago. 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 He does not drink alcohol has had some nausea but apparently drinks a liter of Mountain Dew daily. He states tonight he went to go pick something up and his back went into spasm which is why he presents. He states the pain is kind of similar to a kidney stone but different and that the pain is worse. He denies any changes in bowel or bladder hematuria history of illicit substance use. He has not taken any medications prior to arrival. He is not currently nauseous. He denies any blood in stool or dark/tarry stools. Related Data Home Medications ?Medication ?Instructions ?Recorded ?Confirmed diazepam 5 mg tablet (Valium) 5 mg PO BID PRN #10 tabs 01/20/25 oxycodone 5 mg tablet 5 mg PO Q8H PRN #6 tabs 01/10 05/06 prednisone 20 mg tablet 40 mg (2 x 20 mg) PO ONCE #1 0 tabs 01/20/25 Previous Rx's ?Medication ?Instructions ?Recorded diazepam 5 mg tablet (Valium) 5 mg PO BID PRN #10 tabs 01/20/25 oxycodone 5 mg tablet 5 mg PO Q8H PRN #6 tabs 01/10 05/06 prednisone 20 mg tablet 40 mg (2 x 20 mg) PO ONCE #1 0 tabs 01/20/25 Allergies Allergy/AdvReac Type Severity Reaction Status Date / Time Penicillins Allergy Severe Anaphylaxis Verified 01/20/25 19:31 amoxicillin Allergy Intermediate Anaphylaxis Verified 01/20/25 19:31 Sulfa (Sulfonamide Allergy Intermediate rash Verified 01/20/25 19:31 Antibiotics) General Stated Complaint: Abd Prob CATARINO: 3 Exam Narrative Exam Narrative: Alert and oriented male in acute discomfort, tenderness on palpation of the right upper quadrant and right flank lungs clear to auscultation no abdominal bruit or pulsatile mass distal pulses intact all 4 extremities no rashes or lesions Course Vital Signs Vital signs: Vital Signs Temperature 36.6 C 01/20/25 19:21 Pulse 64 01/20/25 19:21 Respiratory Rate 16 01/20/25 19:21 Blood Pressure 158/95 H 01/20/25 19:21 Pulse Oximetry 99 01/20/25 19:21 Temperature 36.6 C 01/20/25 19:21 Temperature Source Oral 01/20/25 19:21 Pulse 71 01/20/25 20:20 Respiratory Rate 16 01/20/25 19:21 Blood Pressure 128/94 H 01/20/25 20:14 Blood Pressure Mean 104 01/20/25 20:14 Blood Pressure Position Supine 01/20/25 19:21 Pulse Oximetry 99 01/20/25 20:20 Oxygen Delivery Method Room Air 01/20/25 19:21 Oxygen Flow Rate 0 01/20/25 19:21 Pain Level 8 01/20/25 22:21 Lab/Test Results Lab/Test Results: Laboratory Tests Range/Units 01/20/25 01/20/25 19:33 20:00 WBC (4.4-10.8) 10^3/uL 10.29 RBC (4.36-5.78) 10^6/uL 5.12 Hgb (13.5-17.5) g/dL 13.6 Hct (40.0-50.0) % 42.7 MCV (80-95) fL 83 MCH (27.0-33.0) pg 26.6 L MCHC (32.0-36.0) % 31.9 L RDW (11.8-14.1) % 13.2 Plt Count (130-400) 10^3/uL 337 MPV (8.0-11.0) fL 9.1 Immature Gran % % 0.4 Neutrophils % % 56.8 Lymphocytes % % 28.4 Monocytes % % 9.1 Eosinophils % % 4.6 Basophils % % 0.7 Nucleated RBC % (0.0-0.3) % 0.0 Absolute Neutrophils (1.2-6.7) 10^3/uL 5.85 Absolute Lymphocytes (1.2-3.4) 10^3/uL 2.92 Absolute Monocytes (0.1-0.8) 10^3/uL 0.94 H Absolute Eosinophils (0.0-0.7) 10^3/uL 0.47 Absolute Basophils (0.0-0.2) 10^3/uL 0.07 Sodium (136-145) mmol/L 138 Potassium (3.5-5.1) mmol/L 4.2 Chloride (98-107) mmol/L 102 Carbon Dioxide (21.0-32.0) mmol/L 28.3 Anion Gap (3-11) mmol/L 7.7 BUN (7-18) mg/dL 15 Creatinine (0.70-1.30) mg/dL 1.1 Est GFR (CKD-EPI 2020) (mL/min/1.73m2) 88.12 Glucose (74-106) mg/dL 90 Calcium (8.5-10.1) mg/dL 8.9 Total Bilirubin (0.2-1.0) mg/dL 0.4 AST (15-37) U/L 19 ALT (16-63) U/L 30 Alkaline Phosphatase (46-116) U/L 81 Troponin I (<or=76) ng/L 4 Total Protein (6.4-8.2) g/dL 7.9 Albumin (3.4-5.0) g/dL 3.6 Lipase (<78) U/L 29 COVID-19 Source Nasopharynx SARS-CoV-2 (PCR) (Negative) Negative Influenza Type A (PCR) (Negative) Negative Influenza Type B (PCR) (Negative) Negative RSV (PCR) (Negative) Negative Add-On Test Request DONE ABO/Rh A Positive Antibody Screen NEGATIVE Medical Decision Making Results: CT chest abdomen pelvis did not show evidence of acute abnormality while this was not a CTA there is no evidence of obvious PE and there was opacification of the pulmonary arteries there is no evidence of pneumonia, pneumothorax, cholecystitis or hydronephrosis. Labs do not show evidence of acute abnormality BUN is stable troponin is negative and EKG is nonischemic Assessment and plan: Patient was encouraged to follow-up with primary care physician actually to establish care as he does not have a PCP placed on list for follow-up. He will take Protonix at home. I suspect his pain is musculoskeletal as the CT chest abdomen pelvis does not show acute abnormality. He received 1.5 mg of Dilaudid 5 mg of Valium and Toradol with a shot of Decadron after CT was negative. He is pending urinalysis at this time, if his urinalysis is negative, he is written to go as a musculoskeletal pain. He will be placed on the list for follow-up next week to establish care. In terms of the report of red blood in vomitus, patient is color blind he may certainly have consumed something when he is not had any dark tarry stools and hemodynamically is quite stable and CBC is negative. He is encouraged to drink less Mountain Dew and to take a Protonix daily. He is given the threshold to return with new or worsening complaints differential certainly includes a thoracic radiculopathy. PFSH All Active Problems (Updated 01/20/25 @ 22:26 by TOSHA Thurston) Back pain (Acute) Social History Smoking/Tobacco Use Status: Never Smoking risk assessment performed?: Yes Alcohol Intake: current Alcohol Intake frequency: holidays/special occasions only Alcohol type: beer Substance use type: does not use Housing: house Do you feel safe at home: Yes Do you feel safe in your relationship?: Yes
[2025-01-20 23:12] LABS: Glucose Negative (Negative)
[2025-01-20] MEDS: Dexamethasone 4 MG/ML VIAL IVP (23:27)
[2025-01-20] MEDS: MORPHine IR 15 MG TAB, 4 TABS/BTL PO (23:29)
== END 2025-01-20 23:45 | disposition home or self-care (01) ==
PROVIDERS: Emergency Provider Physician Assistant
DX: R11.2 Nausea with vomiting, unspecified; R10.11 Right upper quadrant pain; M62.830 Muscle spasm of back; Z87.442 Personal history of urinary calculi
CPT/HCPCS: 74177; 80053; 83690; 86850; 86900; 86901; 87637; 93005; 96361; 96374; 96375; 96376; 99285; 71260; 81003; 84484; 85025; 93010; 99284; J1100; J1171; J1885; J2405; J2470; J3360; J3490

== ENCOUNTER 2025-01-23 13:10 | Emergency (ER) | payer MEDICAID, SELFPAY ==
[2025-01-23 13:14] VITALS: BP 144/89; PULSE 66; RESP 18; TEMP 36.6; O2SAT 96
--- NOTE | 2025-01-23 13:30 | DI.US_ITS ---
Exam(s) US ABDOMEN LIMITED EXAM: US ABDOMEN LIMITED CLINICAL HISTORY: RUQ abd pain, R/O cholecystitis TECHNIQUE: Ultrasound abdomen performed using standard protocol. COMPARISON: CT CT CHEST/ABD/PEL W from 01/20/2025 FINDINGS: LIVER: Enlarged at 19.1 cm in length. Moderately increased echogenicity and decreased through transmission consistent with moderate hepatic steatosis. No focal liver lesions are seen. GALLBLADDER: No evidence of cholelithiasis. No evidence of wall thickening. No pericholecystic fluid identified. MCINTOSH'S SIGN: Negative. BILIARY SYSTEM: No intrahepatic or extrahepatic biliary ductal dilation. Right KIDNEY: Kidneys normal in size. No evidence of renal calculi. No evidence of hydronephrosis. No renal mass or cyst identified. PANCREAS: Normal where visualized. ASCITES: None seen. IMPRESSION: Enlarged liver with moderate hepatic steatosis. No evidence of cholelithiasis or cholecystitis. DATA REPOSITORY:
--- NOTE | 2025-01-23 13:34 | ED.GENADUL_ITS ---
Discharge Plan Disposition Patient Disposition: Home Condition: Stable Discharge Details Clinical Impression: Hepatic steatosis Primary Care Provider: [facility] Provider: Corrine Recio Home Meds and New Rx's Prescriptions: No Action oxycodone 5 mg tablet 5 mg PO Q8H PRNQty: 6 0RF diazepam [Valium] 5 mg tablet 5 mg PO BID PRNQty: 10 0RF prednisone 20 mg tablet 40 mg PO ONCE Qty: 10 0RF Discharge Instructions Instructions: Metabolic dysfunction-associated steatotic liver disease Additional Instructions: At this time the ultrasound shows an enlarged and fatty liver which could be causing your pain. No evidence of gallstones or infected gallbladder. No evidence of kidney stones or free fluid in your abdominal wall. At this time I do not believe that we need to repeat labs as those were drawn 3 days ago. Please follow-up with your primary care provider regarding this result for further evaluation and care. Stick with a low-fat diet. You may try clear liquids for the next 2 to 3 days and advance with a bland diet as tolerated. Stay away from anything fried fatty spicy or dairy. Please take Ibuprofen with food every 4-6 hours as needed for pain and swelling. Thank you for allowing us to care for you today. Referrals: Primary Care Provider [Outside] - 5 days Discharge Data Discharge Date/Time-TO BE ENTERED AT DEPARTURE: 01/23/25 15:26 HPI General Mode of arrival: ambulatory . Date/Time Provider Initiated Documentation: 01/23/25 13:11 . Limitations to Documentation: no limitations . Information obtained by: patient, RN notes reviewed and old records reviewed . HPI Narrative: 39-year-old male presents to the ER with a chief complaint of right flank pain which radiates into his right upper quadrant for approximately 5 days. He was seen here 3 days ago and had an extensive workup including a CT abdomen pelvis without contrast and labs. He reports continued pain worse after eating. He is questioning whether this could be his gallbladder and if he possibly needs an ultrasound. Denies any more vomiting, does report diarrhea. Related Data Home Medications ?Medication ?Instructions ?Recorded ?Confirmed diazepam 5 mg tablet (Valium) 5 mg PO BID PRN #10 tabs 01/20/25 oxycodone 5 mg tablet 5 mg PO Q8H PRN #6 tabs 01/10 05/06 prednisone 20 mg tablet 40 mg (2 x 20 mg) PO ONCE #1 0 tabs 01/20/25 Previous Rx's ?Medication ?Instructions ?Recorded diazepam 5 mg tablet (Valium) 5 mg PO BID PRN #10 tabs 01/20/25 oxycodone 5 mg tablet 5 mg PO Q8H PRN #6 tabs 01/10 05/06 prednisone 20 mg tablet 40 mg (2 x 20 mg) PO ONCE #1 0 tabs 01/20/25 Allergies Allergy/AdvReac Type Severity Reaction Status Date / Time Penicillins Allergy Severe Anaphylaxis Verified 01/23/25 13:21 amoxicillin Allergy Intermediate Anaphylaxis Verified 01/23/25 13:21 Sulfa (Sulfonamide Allergy Intermediate rash Verified 01/23/25 13:21 Antibiotics) General Stated Complaint: Abd Prob CATARINO: 3 Review of Systems All systems reviewed & are unremarkable except as noted in HPI and below Gastrointestinal Gastrointestinal: Reports as per HPI, Reports abdominal pain and Reports nausea Exam Narrative Exam Narrative: Constitutional: Alert and oriented x3. Appears stated age. Normal body habitus. Head: Normocephalic, no trauma. Chest: RRR, Normal S1, S2, distal pulses intact. Resp: Lungs clear to auscultation bilaterally, no wheezes, rales, or rhonchi. Abdomen: Soft, non-distended, Normoactive bowel sounds all 4 quads. Skin: No suspicious rashes or lesions. Capillary refill less than 2 sec. Hematologic/Lymphatic: No ecchymosis, no lymphadenopathy. Course Vital Signs Vital signs: Vital Signs Temperature 36.6 C 01/23/25 13:14 Pulse 66 01/23/25 13:14 Respiratory Rate 18 01/23/25 13:14 Blood Pressure 144/89 H 01/23/25 13:14 Pulse Oximetry 96 01/23/25 13:14 Temperature 36.6 C 01/23/25 13:14 Temperature Source Oral 01/23/25 13:14 Pulse 66 01/23/25 13:14 Respiratory Rate 18 01/23/25 13:14 Blood Pressure 144/89 H 01/23/25 13:14 Pulse Oximetry 96 01/23/25 13:14 Medical Decision Making 39-year-old male presents to the ER with a chief complaint of right flank pain which radiates into his right upper quadrant for approximately 5 days. He was seen here 3 days ago and had an extensive workup including a CT abdomen pelvis without contrast and labs. He reports continued pain worse after eating. He is questioning whether this could be his gallbladder and if he possibly needs an ultrasound. Denies any more vomiting, does report diarrhea. Ultrasound abdomen limited ordered. Ultrasound shows hepatic steatosis and enlarged liver. Labs from 3 days ago show within normal limit liver function test. Will have patient follow-up with primary care provider for further evaluation and treatment. This text was generated using [employer] system, please disregard any oddities of phrase or misspellings. Medical Records Medical records reviewed: Yes I reviewed the patient's medical records. Imaging Data Radiologic Study: Imaging: Ultrasound Radiologist's impression: FINDINGS: LIVER: Enlarged at 19.1 cm in length. Moderately increased echogenicity and decreased through transmission consistent with moderate hepatic steatosis. No focal liver lesions are seen. GALLBLADDER: No evidence of cholelithiasis. No evidence of wall thickening. No pericholecystic fluid identified. MCINTOSH'S SIGN: Negative. BILIARY SYSTEM: No intrahepatic or extrahepatic biliary ductal dilation. Right KIDNEY: Kidneys normal in size. No evidence of renal calculi. No evidence of hydronephrosis. No renal mass or cyst identified. PANCREAS: Normal where visualized. ASCITES: None seen. IMPRESSION: Enlarged liver with moderate hepatic steatosis. No evidence of cholelithiasis or cholecystitis. PFSH All Active Problems (Updated 01/23/25 @ 14:51 by Corrine Recio NP) Hepatic steatosis (Acute) Back pain (Acute) Social History Smoking/Tobacco Use Status: Never Smoking risk assessment performed?: Yes Alcohol Intake: current Alcohol Intake frequency: holidays/special occasions only Alcohol type: beer Substance use type: does not use Housing: house Do you feel safe at home: Yes Do you feel safe in your relationship?: Yes
== END 2025-01-23 15:26 | disposition home or self-care (01) ==
PROVIDERS: Emergency Provider Registered Nurse Emergency
DX: K76.0 Fatty (change of) liver, not elsewhere classified (principal)
CPT/HCPCS: 99284; 99283; 76705